=== PATIENT | female | born 1955 | race Caucasian/White ===

== ENCOUNTER 2024-11-25 15:40 | Inpatient (IN) ==
--- NOTE | 2024-11-25 16:06 | Emergency Department Note ---
History of Present Illness General Chief complaint: Neck Injury/Pain Stated complaint: LEFT SIDE PAIN, NECK PAIN, Time Seen by Provider: 11/25/24 16:02 History of Present Illness Maximum Pain Intensity: 9 This is a 69-year-old female that presents to the emergency department via private vehicle with complaints of "back pain". The patient notes that she was here this morning for same symptoms. Pain is in the left shoulder blade area and radiates to the left side of her neck. No trauma. No injury. She notes laboratory studies earlier today were overall reassuring. She denies any recent imaging. She is currently wearing a lidocaine patch. She has not taken other medications for the symptoms other than what was given here overnight. The patient denies any central chest pain or shortness of breath. No exertional symptoms. Current pain 07/02. She notes pain now is worse than what it was previously. She notes something similar years ago, but nothing recent other than what prompted presentation earlier today and now. Patient notes that her symptoms began this past Monday mainly in the left scapular region but then began to radiate to the right shoulder. Then overnight this past evening she noted the pain radiated from the left scapula superiorly to the left side of the neck and also to the right shoulder. Pain is worse with movements of the head/neck. She notes trouble taking a deep breath secondary to the pain that is worsened with a deep breath in the left scapula. Home Medications Medication Instructions Recorded Confirmed Type acetaminophen 650 mg 650 mg PO PRN 02/02/24 11/25/24 History tablet,extended release (Tylenol 8 Hour) cyclobenzaprine 10 mg tablet 10 mg PO BID PRN muscle spasm #20 11/25/24 11/25/24 Rx tabs etodolac 400 mg tablet 400 mg PO UD 11/25/24 11/25/24 History Allergies Allergy/AdvReac Type Severity Reaction Status Date / Time cat dander Allergy Unknown ALLERGY Verified 10/19/24 11:51 SYMPTOMS No Known Drug Allergies Allergy Unknown Verified 10/19/24 11:51 Past Med/Surg History Problem List (Updated 11/26/24 @ 11:12 by Александр Zurita MD) Carotid stenosis Abnormal computed tomography angiography of head (Acute) Abnormal computed tomography angiography (CTA) of neck (Acute) Left shoulder pain Cerebral vasculitis Back muscle spasm (Acute) Joint pain Right rotator cuff tendinitis Depression Pap smear of cervix with high grade squamous intraepithelial lesion (HGSIL) (Acute) ASCUS with positive high risk HPV (Acute) Dyslipidemia Painful defecation Rectal discomfort Medical History Biceps muscle tear Smoker History of COVID-19 ? per [facility] testing 01/06/21 pt + for antibodies--pt states she was sick in July 2020--had severe back pain, fever Degenerative arthritis of knee, bilateral Surgical History Hx of bilateral cataract extraction H/O thumb surgery History of colonoscopy S/P wisdom tooth extraction HX S/P ACL repair HX, RIGHT S/P tonsillectomy HX Family History Brother Family history of diabetes mellitus Brother Family history of diabetes mellitus Mother , age 72 pancreatic cancer. Pancreatic cancer Father , age 80 of a stroke Stroke Other No history of previous surgery Denies family history of Ovarian cancer Prostate cancer Myocardial infarction Breast cancer Colorectal cancer Social History Smoking Status: Current every day smoker Tobacco Type: Cigarettes Age Started Using Tobacco: 24; packs per day: 0.5; Cigarettes Per Day: 1/2 pack; Second Hand Exposure: No; Do You Dip or Chew Tobacco: No; Hx Alcohol Use: Yes Alcohol type: wine Alcohol Intake Frequency: Monthly or Less Hx Substance Use: No Preferred Language: Korean Communication Ability: Effective Visual Impairment: No Limitations Hearing Ability: Normal Vamper Required: No Beliefs That Will Affect Care: None marital status: Single Current Living Situation: Alone current occupational status: employed 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 How many Children do You have: 2 Other Information That Helps Us Care for You: No Feels Safe at Home: Yes Safety Concerns: Feels Safe At This Time Childhood Exposure to Second-Hand Smoke: No Diet: regular Diet Comment: regular caffeine: Yes during the past year weight has: remained stable Dental Care, Regularly: Yes Physical Activity Frequency: Daily Seatbelt Use: always Sunscreen Use: Yes Assistive Devices: None Review of Systems A total of 10 systems reviewed and were otherwise negative Physical Exam Vital Signs Vital Signs - 24 hr 11/25/24 15:55 11/25/24 18:28 11/25/24 19:20 Temperature 36.6 C Temperature Source Temporal Artery Scan Pulse Rate 99 H Pulse Rate [Finger] 83 86 Respiratory Rate 18 18 20 Respiratory Effort / Characteristics Non-Labored Respiratory Depth Normal Respiratory Pattern Blood Pressure 148/91 H Blood Pressure [Right Arm] 145/85 H 150/86 H Blood Pressure Mean 110 Blood Pressure Mean [Right Arm] 105 107 Pulse Oximetry 94 99 98 Oxygen Delivery Method Room Air Room Air Room Air Sepsis Recent Fever Within 48 Hours No Sepsis New/Unexplained Change in Mental Status No Sepsis Action Taken by Nursing No Action Required 11/25/24 20:33 11/25/24 22:30 Temperature Temperature Source Pulse Rate Pulse Rate [Finger] 86 85 Respiratory Rate 20 18 Respiratory Effort / Characteristics Non-Labored Respiratory Depth Normal Respiratory Pattern Regular Blood Pressure Blood Pressure [Right Arm] 147/99 H 122/61 Blood Pressure Mean Blood Pressure Mean [Right Arm] 115 81 Pulse Oximetry 97 97 Oxygen Delivery Method Room Air Room Air Sepsis Recent Fever Within 48 Hours Sepsis New/Unexplained Change in Mental Status Sepsis Action Taken by Nursing VITAL SIGNS - Vital signs and nursing notes were reviewed. Mildly hypertensive 148/91, mildly tachycardic at 99, otherwise stable and afebrile. GENERAL -69-year-old female appearing her stated age who is in no acute distress. Communicates well with provider and answers questions appropriately. SKIN - Without rashes. No meningeal or petechial rash. The skin overlying the back is unremarkable. Lidocaine patch in place. No herpetic lesions. HEAD - NC/AT. EYES - PERRL with EOMI bilaterally. Sclera anicteric. EARS - No deformities of external structures noted on gross examination bilaterally. NOSE - Midline and without cyanosis. No epistaxis or purulent drainage noted. MOUTH/OROPHARYNX - Without perioral cyanosis. NECK -patient holds the head and neck in a very still position noting any movement reproduces her discomfort. Tenderness noted to the left cervical paraspinous musculature. LUNGS -clear to auscultation CARDIAC -regular rate and rhythm ABDOMEN - Abdominal contour normal without pulsations or visible masses. BS normoactive all four quadrants. No tenderness, palpable masses, hepatosplenomegaly, or ascites noted. EXTREMITIES - No clubbing or peripheral cyanosis. There is tenderness surrounding the left scapular region with palpable muscle spasm. +5/5 strength noted in UE/LE bilaterally. There is no C, T or L-spine spinous processes tenderness. NEUROLOGIC - Cranial nerves II through XII grossly intact. Biceps reflexes within normal limits bilaterally. PSYCH -alert, oriented and pleasant on exam Course Administered Medications Acetaminophen (Acetaminophen 325 Mg Tab) 650 mg PO Q4H PRN PRN Reason: Pain Stop: 12/26/24 00:48 Last Admin: 11/26/24 01:15 Dose: 650 mg Documented By: RADHA Aspirin (Aspirin 81 Mg Ectab) 81 mg PO DAILY KYRA Stop: 12/26/24 08:59 Last Admin: 11/26/24 09:45 Dose: 81 mg Documented By: ABIEL Baclofen (Baclofen 10 Mg Tab) 10 mg PO TID KYRA Stop: 12/26/24 08:59 Last Admin: 11/26/24 09:44 Dose: 10 mg Documented By: ABIEL Lidocaine (Lidocaine 5% 1 Patch) 1 patch TD QAM KYRA Stop: 12/26/24 08:59 Last Admin: 11/26/24 09:45 Dose: 1 patch Documented By: ABIEL Discontinued Medications Acetaminophen (Acetaminophen 325 Mg Tab) 650 mg PO NOW STA Stop: 11/25/24 20:19 Last Admin: 11/25/24 20:30 Dose: 650 mg Documented By: YUE Aspirin (Aspirin 81 Mg Ectab) 81 mg PO NOW STA Stop: 11/25/24 20:32 Last Admin: 11/25/24 20:46 Dose: 81 mg Documented By: YUE Baclofen (Baclofen 10 Mg Tab) 10 mg PO NOW STA Stop: 11/25/24 20:19 Last Admin: 11/25/24 20:30 Dose: 10 mg Documented By: YUE Ioversol (Optiray 320 125ml) 119 ml IV ONCE ONE Stop: 11/25/24 18:14 Last Admin: 11/25/24 18:13 Dose: 119 ml Documented By: JOSÉ LUIS Ketorolac Tromethamine (Ketorolac Tromethamine 10 Mg Tablet) 10 mg PO NOW STA Stop: 11/26/24 03:35 Last Admin: 11/26/24 03:53 Dose: 10 mg Documented By: HE Morphine Sulfate (Morphine Sulfate 4 Mg/Ml 1 Ml Carp\\Vial) 4 mg IV NOW STA Stop: 11/25/24 16:28 Last Admin: 11/25/24 16:53 Dose: 4 mg Documented By: ELIAN Morphine Sulfate (Morphine Sulfate 2 Mg/Ml Carp) 2 mg IV NOW STA Stop: 11/25/24 17:35 Last Admin: 11/25/24 17:38 Dose: 2 mg Documented By: MANUEL Ondansetron HCl (Ondansetron Inj 2 Mg/Ml 2 Ml Vial) 4 mg IV NOW STA Stop: 11/25/24 16:28 Last Admin: 11/25/24 16:52 Dose: 4 mg Documented By: ELIAN Medical Decision Making Laboratory Data 11/25/24 16:49 11/25/24 16:49 Lab Results 11/25/24 11/25/24 11/25/24 Range/Units 16:49 16:56 17:00 WBC 7.85 (4.8-10.8) K/ul RBC 5.02 (4.20-5.40) M/uL Hgb 13.7 (12.0-16.0) g/dl POC Hgb 14.6 (12.0-16.0) g/dl Hct 43.2 (37.0-47.0) % POC Hct 43 (37-47) % MCV 86.1 (80.0-100.0) fL MCH 27.3 (25.0-34.0) pg MCHC 31.7 L (32.0-36.0) g/dL RDW Std Deviation 40.1 (36.4-46.3) fL RDW Coeff of Kike 13.0 (11.5-14.5) % Plt Count 209 (130-400) K/uL MPV 10.8 (9.4-12.4) fL Immature Gran % (Auto) 0.5 % Neut % (Auto) 77.5 % Lymph % (Auto) 11.5 % Steele % (Auto) 9.3 % Eos % (Auto) 0.9 % Baso % (Auto) 0.3 % Neut # (Auto) 6.09 (1.40-6.50) K/uL Lymph # (Auto) 0.90 L (1.20-3.40) K/uL Steele # (Auto) 0.73 H (0.11-0.59) K/uL Eos # (Auto) 0.07 (0.00-0.50) K/uL Baso # (Auto) 0.02 (0.00-0.20) K/uL Immature Gran # (Auto) 0.04 (0.01-0.20) K/uL ESR 47 H (0-30) mm/hr PT 10.3 (9.0-12.0) Seconds INR 0.9 (0.9-1.1) APTT 28 (21-31) Seconds PTT Ratio 1.0 POC Sodium 140 (135-144) mmol/L Sodium 138 (136-145) mmol/L POC Potassium 4.0 (3.3-5.0) mmol/L Potassium 3.9 (3.5-5.1) mmol/L POC Chloride 104 (101-112) mmol/L Chloride 104 (98-107) mmol/L Carbon Dioxide 27 (21-32) mmol/L POC Total CO2 25 (24-31) mmol/L Anion Gap 7 (3-11) POC Anion Gap 16.0 (16-25) mmol/L POC BUN 13 (7-18) mg/dl BUN 14 (6-23) mg/dl Creatinine 0.77 (0.6-1.2) mg/dl POC Creatinine 0.9 (0.6-1.3) mg/dl Est Cr Clr Drug Dosing 68.0 ml/min eGFR 82.93 BUN/Creatinine Ratio 18.2 (10-20) Glucose 117 H (70-99(Fasting)) mg/dl POC Glucose (other) 118 H (70-99) mg/dl Calcium 9.5 (8.6-10.3) mg/dl POC Ioniz Calcium Hector 1.21 (1.12-1.32) mmol/l Magnesium 2.3 (1.7-2.4) mg/dl Total Bilirubin 0.7 (0.2-1.0) mg/dl AST 15 (13-39) U/L ALT 14 (7-52) U/L Alkaline Phosphatase 56 (34-104) U/L Total Creatine Kinase 78 (26-192) U/L Troponin I High Sens 7.2 (0-14) pg/ml C-Reactive Protein 8.58 H (0-0.5) mg/dl Total Protein 7.1 (6.0-8.3) gm/dl Albumin 3.9 (3.4-5.0) gm/dl Globulin 3.2 (2.5-4.0) gm/dl Albumin/Globulin Ratio 1.2 (0.9-2) Lipase 9 L (11-82) U/L Urine Color Urine Appearance (Clear) Urine pH (4.5-7.5) Ur Specific Pixley (1.000-1.030) Urine Protein (Negative) Urine Glucose (UA) (Negative) Urine Ketones (Negative) Urine Blood (Negative) Urine Nitrite (Negative) Urine Bilirubin (Negative) Urine Urobilinogen (Negative) Ur Leukocyte Esterase (Negative) Lyme Disease Screen Negative (Negative) SARS-CoV-2 (PCR) NEGATIVE (Negative) Influenza Type A (PCR) Negative (Neg) Influenza Type B (PCR) Negative (Neg) RSV (RT-PCR) Negative (Neg) 11/25/24 Range/Units 19:14 WBC (4.8-10.8) K/ul RBC (4.20-5.40) M/uL Hgb (12.0-16.0) g/dl POC Hgb (12.0-16.0) g/dl Hct (37.0-47.0) % POC Hct (37-47) % MCV (80.0-100.0) fL MCH (25.0-34.0) pg MCHC (32.0-36.0) g/dL RDW Std Deviation (36.4-46.3) fL RDW Coeff of Kike (11.5-14.5) % Plt Count (130-400) K/uL MPV (9.4-12.4) fL Immature Gran % (Auto) % Neut % (Auto) % Lymph % (Auto) % Steele % (Auto) % Eos % (Auto) % Baso % (Auto) % Neut # (Auto) (1.40-6.50) K/uL Lymph # (Auto) (1.20-3.40) K/uL Steele # (Auto) (0.11-0.59) K/uL Eos # (Auto) (0.00-0.50) K/uL Baso # (Auto) (0.00-0.20) K/uL Immature Gran # (Auto) (0.01-0.20) K/uL ESR (0-30) mm/hr PT (9.0-12.0) Seconds INR (0.9-1.1) APTT (21-31) Seconds PTT Ratio POC Sodium (135-144) mmol/L Sodium (136-145) mmol/L POC Potassium (3.3-5.0) mmol/L Potassium (3.5-5.1) mmol/L POC Chloride (101-112) mmol/L Chloride (98-107) mmol/L Carbon Dioxide (21-32) mmol/L POC Total CO2 (24-31) mmol/L Anion Gap (3-11) POC Anion Gap (16-25) mmol/L POC BUN (7-18) mg/dl BUN (6-23) mg/dl Creatinine (0.6-1.2) mg/dl POC Creatinine (0.6-1.3) mg/dl Est Cr Clr Drug Dosing ml/min eGFR BUN/Creatinine Ratio (10-20) Glucose (70-99(Fasting)) mg/dl POC Glucose (other) (70-99) mg/dl Calcium (8.6-10.3) mg/dl POC Ioniz Calcium Hector (1.12-1.32) mmol/l Magnesium (1.7-2.4) mg/dl Total Bilirubin (0.2-1.0) mg/dl AST (13-39) U/L ALT (7-52) U/L Alkaline Phosphatase (34-104) U/L Total Creatine Kinase (26-192) U/L Troponin I High Sens (0-14) pg/ml C-Reactive Protein (0-0.5) mg/dl Total Protein (6.0-8.3) gm/dl Albumin (3.4-5.0) gm/dl Globulin (2.5-4.0) gm/dl Albumin/Globulin Ratio (0.9-2) Lipase (11-82) U/L Urine Color Yellow Urine Appearance Clear (Clear) Urine pH 6.5 (4.5-7.5) Ur Specific Pixley 1.043 H (1.000-1.030) Urine Protein Negative (Negative) Urine Glucose (UA) Negative (Negative) Urine Ketones Negative (Negative) Urine Blood Negative (Negative) Urine Nitrite Negative (Negative) Urine Bilirubin Negative (Negative) Urine Urobilinogen Negative (Negative) Ur Leukocyte Esterase Negative (Negative) Lyme Disease Screen (Negative) SARS-CoV-2 (PCR) (Negative) Influenza Type A (PCR) (Neg) Influenza Type B (PCR) (Neg) RSV (RT-PCR) (Neg) Imaging Data Radiologist's Impression: Head CTA 11/25/24 16:[address] without contrast CT angiogram of the neck CT angiogram of the brain with contrast Provided History: Neuro deficit Comparison: None Technique: HEAD CT: Using multidetector thin collimation helical acquisition technique, axial, coronal and sagittal CT images from the skull base to the vertex were obtained without intravenous contrast. HEAD and NECK CTA: During rapid bolus intravenous injection of nonionic contrast material, axial images were obtained using thin collimation multidetector helical technique from the base of the neck through the Vertex of vertex of the head. This CT angiogram data was reconstructed at thin intervals with mild overlap. 3D reconstructions were obtained. The axial source images, multiplanar reformations, 3D reconstructions in both maximum intensity projection display and volume rendered models were reviewed. Dose reduction techniques were achieved by using automatic exposure control and/or adjustment of mA and/or kV according to patient size and/or use of iterative reconstruction technique. Findings: Head CT: There is no intracranial hemorrhage, mass effect, or midline shift. Michael/white matter differentiation in both cerebral hemispheres is preserved. Ventricles are proportionate to the cerebral sulci. Head CTA demonstrates loss of flow at the left ICA terminus, as well as the proximal M1 portion of the MCA on the left. There are numerous tiny collateral vessels occupying the expected region of the proximal left MCA, which may be due to a chronic and progressive occlusion. The right MCA is normal. The right intracranial ICA is normal. Notably there is asymmetric loss of enhancement of the left cavernous sinus, suspicious for cavernous sinus thrombosis, and otherwise normal enhancement of the right cavernous sinus. The anterior cerebral arteries and posterior cerebral arteries otherwise appear patent. Grossly patent major dural venous sinuses. Neck CTA demonstrates several areas of beading of the wall of the internal carotid arteries, which are also significantly tortuous. No large vessel occlusion. There also appear to be several scattered arterial collaterals extending along the length of both internal carotid arteries. The vertebral arteries and basilar artery are patent. No mass is noted within the visualized portions of the cervical soft tissues or lung apices. 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 There is also asymmetric loss of enhancement of the left cavernous sinus suspicious for cavernous sinus thrombosis. Significant tortuosity and beaded appearance of both internal carotid arteries in the neck, which is consistent with a [employer]DER vasculitis. No large vessel occlusion. Noncontrast head CT is normal, without hemorrhage or significant vascular territory infarct. Consider follow-up MRI. The study was analyzed using artificial intelligence software for large vessel occlusion detection. Findings discussed with Marcelo Calderon by Dr. Mitchell at 6:55 PM, 11/25/2024 Electronically signed by James Mitchell 11-25-2024 7:01 PM Neck CTA 11/25/24 16:[address] without contrast CT angiogram of the neck CT angiogram of the brain with contrast Provided History: Neuro deficit Comparison: None Technique: HEAD CT: Using multidetector thin collimation helical acquisition technique, axial, coronal and sagittal CT images from the skull base to the vertex were obtained without intravenous contrast. HEAD and NECK CTA: During rapid bolus intravenous injection of nonionic contrast material, axial images were obtained using thin collimation multidetector helical technique from the base of the neck through the Vertex of vertex of the head. This CT angiogram data was reconstructed at thin intervals with mild overlap. 3D reconstructions were obtained. The axial source images, multiplanar reformations, 3D reconstructions in both maximum intensity projection display and volume rendered models were reviewed. Dose reduction techniques were achieved by using automatic exposure control and/or adjustment of mA and/or kV according to patient size and/or use of iterative reconstruction technique. Findings: Head CT: There is no intracranial hemorrhage, mass effect, or midline shift. Michael/white matter differentiation in both cerebral hemispheres is preserved. Ventricles are proportionate to the cerebral sulci. Head CTA demonstrates loss of flow at the left ICA terminus, as well as the proximal M1 portion of the MCA on the left. There are numerous tiny collateral vessels occupying the expected region of the proximal left MCA, which may be due to a chronic and progressive occlusion. The right MCA is normal. The right intracranial ICA is normal. Notably there is asymmetric loss of enhancement of the left cavernous sinus, suspicious for cavernous sinus thrombosis, and otherwise normal enhancement of the right cavernous sinus. The anterior cerebral arteries and posterior cerebral arteries otherwise appear patent. Grossly patent major dural venous sinuses. Neck CTA demonstrates several areas of beading of the wall of the internal carotid arteries, which are also significantly tortuous. No large vessel occlusion. There also appear to be several scattered arterial collaterals extending along the length of both internal carotid arteries. The vertebral arteries and basilar artery are patent. No mass is noted within the visualized portions of the cervical soft tissues or lung apices. 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 There is also asymmetric loss of enhancement of the left cavernous sinus suspicious for cavernous sinus thrombosis. Significant tortuosity and beaded appearance of both internal carotid arteries in the neck, which is consistent with a [employer] vasculitis. No large vessel occlusion. Noncontrast head CT is normal, without hemorrhage or significant vascular territory infarct. Consider follow-up MRI. The study was analyzed using artificial intelligence software for large vessel occlusion detection. Findings discussed with Marcelo Calderon by Dr. Mitchell at 6:55 PM, 11/25/2024 Electronically signed by James Mitchell 11-25-2024 7:01 PM Chest CTA 11/25/24 16:21 CT angiogram with and without IV contrast History: Chest pain COMPARISON: None TECHNIQUE: CT angiography of the chest was performed without IV contrast followed by IV contrast, including 3D post processing CTA image reconstruction. Dose reduction techniques were achieved by using automatic exposure control and/or adjustment of mA and/or kV according to patient size and/or use of iterative reconstruction technique. FINDINGS: Diagnostic quality: Adequate There is no evidence for pulmonary embolism. No aortic dissection. No aortic aneurysm. No significant coronary calcification. The heart is not enlarged. There is no pericardial effusion. There are no abnormally enlarged hilar or mediastinal lymph nodes. The central tracheobronchial tree is clear. Mild streaky bibasilar peripheral atelectasis, otherwise of the lungs are clear. There is no pleural effusion. Limited visualized upper abdomen. No destructive osseous changes are seen. IMPRESSION: No acute thoracic aortic pathology. Mild bibasilar atelectasis. Electronically signed by James Mitchell 11-25-2024 7:01 PM MDM Narrative Patient was seen and evaluated as above in room D05. Review was performed of triage nursing notes and vital signs. I did review pertinent previous visits and patient history. After obtaining a thorough history and physical examination the above work up was performed. Patient was seen here overnight/into the early hours of this morning for same symptoms. I did review the laboratory studies that were performed at that time. There was a chest x-ray also performed earlier today. Laboratory studies earlier today revealed no leukocytosis or concerning anemia. No emergent metabolic disturbance. Hyperglycemia 127 noted on laboratory studies earlier today. She notes that the Toradol, Flexeril and lidocaine patch provided did not alleviate her pain. Options of care were discussed with the patient. IV access was established. Labs are drawn. IV morphine ordered for pain, Zofran for any nausea. We will proceed with CT angios of the head, neck and chest to further assess. I did receive a phone call at 6:52 PM from radiology service, spoke with Dr. Mitchell. Findings are as above and he does note that the patient has findings of a left M1 occlusion likely chronic, asymmetric loss of enhancement of the left cavernous sinus concerning for cavernous sinus thrombosis, and also notes potentially [employer] vasculitis. I reviewed these abnormal findings with the patient. She continues with a normal neurologic examination. NIHSS 0. We did consult [facility] service. 7:20 PM: I spoke with Dr. Finney of [facility] neurology service. Patient was also evaluated by Dr. Finney via tele stroke neuro cart. We reviewed in detail the patient's symptoms, physical examination findings and test results. She recommended MRI of the head with and without contrast, MRA head, MRV head, ESR, CRP, RIC with reflex, start aspirin 81 mg daily, obtain lipid panel, echo, A1c. Consider baclofen and lidocaine patch for neck pain. Consult neurology in a.m. We reviewed how unfortunately we do not have MRI capability at this time and likely will not be until least Monday until we have that capability. We discussed transfer versus admission here. Initially it was noted by Dr. Finney that if the patient maintained stable neurologic status and without new numbness, speech trouble or vision change then okay to hold off on transfer. I reviewed this with the patient as well as daughter. Desires is to be transferred to [facility] at this time. I did order 81 mg aspirin for the patient. I did add on ESR and CRP. I also added baclofen for pain. I also ordered acetaminophen. Patient does note some improvement with the baclofen. 8:56 PM: I spoke with [facility] again regarding transfer. They obtained additional information and will speak with the specialist. 9:04 PM: I spoke with Mary Hernandez neurologist. We discussed the patient's case. I did review the CT findings noting they were concerning for M1 occlusion-likely chronic, possible cavernous sinus thrombosis, and potentially a [employer] vasculitis. In speaking with her, ultimately transfer was declined. However she did note that if the patient were to develop any signs of intracranial pressure increase, vision change, headaches or any other worsening symptoms/stroke symptoms then she is to be transferred. I updated the patient and daughter at bedside upon this discussion. I reviewed several other options with the patient and daughter. I offered to call other centers for transfer. Ultimately through shared medical decision making with the patient and Daughter, we elected to proceed with admission here as initially recommended by the telestroke neurologist. Patient is to notify us of any change in symptoms and she will have frequent reevaluations here in the inpatient setting. I discussed the case with the hospitalist service. Please refer to further documentation regarding her stay. I reevaluated the patient several times throughout her stay here in the ED. At no point did she exhibit any neurovascular compromise. NIHSS continued to be 0. Patient continues to deny any headache. No vision trouble. No speech trouble. No weakness. No vomiting. GCS remains 15. Patient continues to be alert and oriented. She reassuringly was starting to feel better with the baclofen. She is aware of all findings today and plan of care. She is agreeable to plan. EKG per my interpretation reveals normal sinus rhythm at a rate of 90 bpm. QTc 459. QRS 84. No ST elevation on this rhythm tracing. Case was discussed with the attending physician. GCS: 15 In the evaluation and treatment of this patient the following differential diagnoses were entertained: Strain, sprain, dissection, CVA, TIA, among others. Attending Attestation: I Rene Dolan MD I have reviewed the advanced practitioner's documentation and agree with the plan of care. Imaging completed with reports showing likely chronic vascular changes. PA did discussed with [facility] stroke service and recs for additional imaging, testing, treatment received; [facility] did not feel the patient warranted transfer at this time. Symptoms reported (pain) not corresponding well to the imaging findings. Patient to be admitted for pain control and further neuro eval in morning. I accept the responsibility for the associated risk of managing the patient. I performed a substantive portion of the visit including involvement in all aspects of medical decision making. Impression & Plan Back muscle spasm, Abnormal computed tomography angiography (CTA) of neck, Abnormal computed tomography angiography of head Discharge Plan Visit Data Chief Complaint: Neck Injury/Pain Stated Complaint: LEFT SIDE PAIN, NECK PAIN, ED Provider: Rene Dolan ED Midlevel Provider: Marcelo Calderon Discharge Problem: Back muscle spasm, Abnormal computed tomography angiography (CTA) of neck, Abnormal computed tomography angiography of head Patient Disposition: Admitted As Inpatient Condition: Good Discharge Instructions Interventions: ED Discharge Assessment Last Done: 11/25/24 23:39
[2024-11-25] MEDS: ONDANSETRON INJ 2 MG/ML 2 ML VIAL IV STA (16:52)
[2024-11-25] MEDS: MoRPHine SULFATE 4 MG/ML 1 ML CARP\\VIAL IV STA (16:53)
[2024-11-25 17:08] LABS: iSTAT Creatinine 0.9 mg/dl (0.6-1.3); iSTAT Hemoglobin 14.6 g/dl (12.0-16.0); iSTAT Ionized Calcium 1.21 mmol/l (1.12-1.32)
[2024-11-25 17:20] LABS: Basophils # (auto) 0.02 K/uL (0.00-0.20); Basophils % (auto) 0.3 %; Eosinophils # (auto) 0.07 K/uL (0.00-0.50); Eosinophils % (auto) 0.9 %; Hematocrit (blood only) 43.2 % (37.0-47.0); Hemoglobin 13.7 g/dl (12.0-16.0); Immature Granulocytes # (auto) 0.04 K/uL (0.01-0.20); Immature Granulocytes % (auto) 0.5 %; Lymphocytes % (auto) 11.5 %; Mean Corpuscular Hemoglobin 27.3 pg (25.0-34.0); Mean Corpuscular Hgb Conc 31.7 g/dL (32.0-36.0); Mean Corpuscular Volume 86.1 fL (80.0-100.0); Mean Platelet Volume 10.8 fL (9.4-12.4); Monocytes # (auto) 0.73 K/uL (0.11-0.59); Monocytes % (auto) 9.3 %; Neutrophils # (auto) 6.09 K/uL (1.40-6.50); Neutrophils % (auto) 77.5 %; Platelet Count 209 K/uL (130-400); RDW Standard Deviation 40.1 fL (36.4-46.3); Red Blood Count 5.02 M/uL (4.20-5.40); White Blood Count 7.85 K/ul (4.8-10.8)
[2024-11-25 17:34] LABS: INR 0.9 (0.9-1.1); Partial Thromboplastin Time 28 Seconds (21-31); Prothrombin Time 10.3 Seconds (9.0-12.0)
[2024-11-25] MEDS: MoRPHine SULFATE 2 MG/ML CARP IV STA (17:38)
[2024-11-25 17:43] LABS: Albumin Level 3.9 gm/dl (3.4-5.0); Bilirubin,Total 0.7 mg/dl (0.2-1.0); Calcium 9.5 mg/dl (8.6-10.3); Magnesium 2.3 mg/dl (1.7-2.4); Potassium 3.9 mmol/L (3.5-5.1)
[2024-11-25 17:49] LABS: Albumin Globulin Ratio 1.2 (0.9-2); BUN Creatinine Ratio 18.2 (10-20); Globulin 3.2 gm/dl (2.5-4.0); Total Protein 7.1 gm/dl (6.0-8.3)
[2024-11-25 17:51] LABS: Troponin I High Sensitivity 7.2 pg/ml (0-14)
[2024-11-25 17:55] LABS: Influenza A virus by PCR Negative (Neg); Influenza B virus by PCR Negative (Neg); RSV by PCR Negative (Neg); SARS CoV2 RNA(COVID-19) Ceph NEGATIVE (Negative)
[2024-11-25] MEDS: OPTIRAY 320 125ml IV ONE (18:13)
--- NOTE | 2024-11-25 19:01 | CT Scan Report ---
Head CT without contrast CT angiogram of the neck CT angiogram of the brain with contrast Provided History: Neuro deficit Comparison: None Technique: HEAD CT: Using multidetector thin collimation helical acquisition technique, axial, coronal and sagittal CT images from the skull base to the vertex were obtained without intravenous contrast. HEAD and NECK CTA: During rapid bolus intravenous injection of nonionic contrast material, axial images were obtained using thin collimation multidetector helical technique from the base of the neck through the Vertex of vertex of the head. This CT angiogram data was reconstructed at thin intervals with mild overlap. 3D reconstructions were obtained. The axial source images, multiplanar reformations, 3D reconstructions in both maximum intensity projection display and volume rendered models were reviewed. Dose reduction techniques were achieved by using automatic exposure control and/or adjustment of mA and/or kV according to patient size and/or use of iterative reconstruction technique. Findings: Head CT: There is no intracranial hemorrhage, mass effect, or midline shift. Michael/white matter differentiation in both cerebral hemispheres is preserved. Ventricles are proportionate to the cerebral sulci. Head CTA demonstrates loss of flow at the left ICA terminus, as well as the proximal M1 portion of the MCA on the left. There are numerous tiny collateral vessels occupying the expected region of the proximal left MCA, which may be due to a chronic and progressive occlusion. The right MCA is normal. The right intracranial ICA is normal. Notably there is asymmetric loss of enhancement of the left cavernous sinus, suspicious for cavernous sinus thrombosis, and otherwise normal enhancement of the right cavernous sinus. The anterior cerebral arteries and posterior cerebral arteries otherwise appear patent. Grossly patent major dural venous sinuses. Neck CTA demonstrates several areas of beading of the wall of the internal carotid arteries, which are also significantly tortuous. No large vessel occlusion. There also appear to be several scattered arterial collaterals extending along the length of both internal carotid arteries. The vertebral arteries and basilar artery are patent. No mass is noted within the visualized portions of the cervical soft tissues or lung apices. 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 There is also asymmetric loss of enhancement of the left cavernous sinus suspicious for cavernous sinus thrombosis. 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 No large vessel occlusion. Noncontrast head CT is normal, without hemorrhage or significant vascular territory infarct. Consider follow-up MRI. The study was analyzed using artificial intelligence software for large vessel occlusion detection. Findings discussed with Marcelo Calderon by Dr. Mitchell at 6:55 PM, 11/25/2024 Electronically signed by James Mitchell 11-25-2024 7:01 PM
--- NOTE | 2024-11-25 19:01 | CT Scan Report ---
CT angiogram with and without IV contrast History: Chest pain COMPARISON: None TECHNIQUE: CT angiography of the chest was performed without IV contrast followed by IV contrast, including 3D post processing CTA image reconstruction. Dose reduction techniques were achieved by using automatic exposure control and/or adjustment of mA and/or kV according to patient size and/or use of iterative reconstruction technique. FINDINGS: Diagnostic quality: Adequate There is no evidence for pulmonary embolism. No aortic dissection. No aortic aneurysm. No significant coronary calcification. The heart is not enlarged. There is no pericardial effusion. There are no abnormally enlarged hilar or mediastinal lymph nodes. The central tracheobronchial tree is clear. Mild streaky bibasilar peripheral atelectasis, otherwise of the lungs are clear. There is no pleural effusion. Limited visualized upper abdomen. No destructive osseous changes are seen. IMPRESSION: No acute thoracic aortic pathology. Mild bibasilar atelectasis. Electronically signed by James Mitchell 11-25-2024 7:01 PM
[2024-11-25 19:30] LABS: Appearance Urine Clear (Clear); Bilirubin Urine Negative (Negative); Blood Urine Negative (Negative); Color Urine Yellow; Glucose Urine UA Negative (Negative); Ketones Urine Negative (Negative); Leukocyte Esterase Urine Negative (Negative); Nitrite Urine Negative (Negative); Protein Urine Negative (Negative); Specific Gravity Urine 1.043 (1.000-1.030); Urobilinogen Urine Negative (Negative); pH Urine 6.5 (4.5-7.5)
[2024-11-25] MEDS: BACLOFEN 10 MG TAB PO STA (20:30)
[2024-11-25] MEDS: ACETAMINOPHEN 325 MG TAB PO STA (20:30)
[2024-11-25] MEDS: ASPIRIN 81 MG ECTAB PO STA (20:46)
--- NOTE | 2024-11-25 22:21 | History & Physical Report ---
Date of Service November 25, 2024 Assessment & Plan (1) Cerebral vasculitis: (2) Left shoulder pain: Plan 69-year-old female PMHx dyslipidemia, depression, and the ED for left-sided back and scapular pain, radiating to neck. Patient was evaluated in the ED the morning of arrival and was discharged home with diagnosis of muscle spasm. Came back to the ED because she was having worsening pain. 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 ED workup overall unremarkable, with ESR 47 and abnormalities within CTA of head/neck- L M1 occlusion with collaterals, asymmetric loss of enhancement L cavernous sinus, tortuosity and beaded ICAs of neck. #? 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 Overall laboratory findings grossly unremarkable at time of admission, but CTA head/neck with concerning findings of L M1 occlusion, possibly chronic given presence of collateral circulation, asymmetric loss of enhancement of the L cavernous sinus and beaded appearance of ICAs and the neck. Initially, given the inability to complete MRI at current facility, patient was going to be considered for transfer. Transfer was declined from outside hospital and after discussion between ED JORDANA, patient, and family, all were agreeable to admission to [facility] for remaining workup. Imaging still recommended just unable to be ordered at time of admission given technical difficulties. - Telestroke consulted- ESR, CRP, RIC with reflex, lipids, echo, A1c, start aspirin 81 Mg daily, baclofen and lidocaine patch for pain, and neurology consult. Recommending imaging as well- MRI head with/without contrast, MRI head, MRV head - Neurochecks every 4 hours - CTA head/neck- L M1 occlusion, possibly chronic given presence of collateral circulation, asymmetric loss of enhancement of the L cavernous sinus and beaded appearance of ICAs and the neck - Echo with bubble, A1c, lipids pending - ESR 47; CRP and RIC with reflex pending - Troponin 7.3 (0530), 7.2 (1649); EKG NSR during both ED visits - ASA 81 mg daily; baclofen and lidocaine patch as needed for pain - Neurology consulted- Appreciate input + recs Dispo: Admit, med/tele VTE prophylaxis: SCDs This document was dictated utilizing Hoverink. Please excuse any grammatical errors that may be secondary to use of this software. Admission and Anticipated Discharge Date Admission Date: 11/25/2024 History of Present Illness Chief Complaint: Neck pain Primary Care Provider: Miguel Evans, III, WIRE WHEELER 69-year-old female PMHx dyslipidemia, depression, and the ED for left-sided back and scapular pain, radiating to neck. Patient was evaluated in the ED the morning of arrival and was discharged home with diagnosis of muscle spasm. Came back to the ED because she was having worsening pain. 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 States that she has chronic/tingling in her right arm from prior bicep trauma, but has not had new numbness or tingling. No weakness to any of the extremities. Patient denies having this happen before. No trauma or injury that patient can recall. Does have knee pain/abnormalities per patient. She believes that these occurred after the COVID-vaccine was received and has been an ongoing issue for the past 3 years. Otherwise denies additional joint problems or history of rheumatologic diagnoses in herself or family. Denying chest pain, shortness of breath, ulcers in mouth, frothy urine, or additional aches/pains. Normally utilizes etodolac and as needed Tylenol for pain, but has not been using the NSAID for the past week. ED workup reveals grossly WNL CBC, ESR 47, grossly WNL CMP with exception of glucose 117, and negative UA. CXR with LLL atelectatic bands, R lower zone cardiophrenic nodule atelectasis, no acute findings. Head/neck CTA without M1 occlusion (likely chronic 2/2 collaterals), asymmetric loss of enhancement of L cavernous sinus (suspicious for cavernous sinus thrombosis), significant tortuosity and beaded appearance of internal carotid arteries and neck (consistent with STRUCTURAL STEEL ERECTOR vasculitis). Head CT normal, consider follow-up MRI. Please see Dr. Roberts's attestation for adjustments/additions to treatment plan. Allergies Allergy/AdvReac Type Severity Reaction Status Date / Time cat dander Allergy Unknown ALLERGY Verified 10/19/24 11:51 SYMPTOMS No Known Drug Allergies Allergy Unknown Verified 10/19/24 11:51 Home Medications Medication Instructions Recorded Confirmed Type acetaminophen 650 mg 650 mg PO PRN 02/02/24 11/25/24 History tablet,extended release (Tylenol 8 Hour) cyclobenzaprine 10 mg tablet 10 mg PO BID PRN muscle spasm #20 11/25/24 11/25/24 Rx tabs etodolac 400 mg tablet 400 mg PO UD 11/25/24 11/25/24 History Past Med/Surg History Problem List Abnormal computed tomography angiography of head (Acute) Abnormal computed tomography angiography (CTA) of neck (Acute) Left shoulder pain Cerebral vasculitis Back muscle spasm (Acute) Joint pain Right rotator cuff tendinitis Depression Pap smear of cervix with high grade squamous intraepithelial lesion (HGSIL) (Acute) ASCUS with positive high risk HPV (Acute) Dyslipidemia Painful defecation Rectal discomfort Medical History Biceps muscle tear Smoker History of COVID-19 ? per IGg testing 01/06/21 pt + for antibodies--pt states she was sick in July 2020--had severe back pain, fever Degenerative arthritis of knee, bilateral Surgical History Hx of bilateral cataract extraction H/O thumb surgery History of colonoscopy S/P wisdom tooth extraction HX S/P ACL repair HX, RIGHT S/P tonsillectomy HX Family History Brother Family history of diabetes mellitus Brother Family history of diabetes mellitus Mother Pancreatic cancer Other No history of previous surgery Denies family history of Ovarian cancer Prostate cancer Myocardial infarction Breast cancer Colorectal cancer Social History Smoking Status: Current every day smoker Tobacco Type: Cigarettes Age Started Using Tobacco: 24; packs per day: 0.5; Cigarettes Per Day: 10; Second Hand Exposure: No; Do You Dip or Chew Tobacco: No; Hx Alcohol Use: No Hx Substance Use: No Preferred Language: Albanian Communication Ability: Effective Visual Impairment: No Limitations Hearing Ability: Normal 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: No Beliefs That Will Affect Care: None marital status: Single Current Living Situation: Alone current occupational status: employed 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 How many Children do You have: 2 Feels Safe at Home: Yes Childhood Exposure to Second-Hand Smoke: No Diet: regular Diet Comment: regular caffeine: Yes during the past year weight has: remained stable Dental Care, Regularly: Yes Physical Activity Frequency: Daily Seatbelt Use: always Sunscreen Use: Yes Assistive Devices: None Review of Systems Review of Systems: All systems reviewed & are unremarkable except as noted in Subjective Physical Exam Physical Exam: General: No acute distress Skin: Warm and dry, without rashes or lesions Head: Normocephalic, atraumatic Eyes: PERRL, conjunctivae clear, sclera non-icteric ENT: External ear and ear canal without swelling; nose atraumatic; good dentition, tongue normal appearance, pharynx normal Neck: Supple, no LAD Cardio: RRR, no M/G/R, S1 and S2 normal Resp: No respiratory distress, Lungs CTA in all lobes bilaterally, no wheezes, rales, or rhonchi MSK: No deformities, normal PROM LUE, tenderness to palpation along scapula and tenderness along anterior aspect of shoulder, no tenderness to palpation of j oint space; pulses palpable and equal Neuro: Awake, alert; CN grossly intact Psych: Appropriate mood and affect; good judgement and insight. Daughter present in room at time of visit. Results & Data Results & Data Vital Signs (Past 12 Hours) Vital Signs Temp Pulse Pulse Resp BP BP Pulse Ox 11/25/24 20:33 86 20 147/99 H 97 11/25/24 19:20 86 20 150/86 H 98 11/25/24 18:28 83 18 145/85 H 99 11/25/24 15:55 36.6 C 99 H 18 148/91 H 94 O2 Del Method 11/25/24 20:33 Room Air 11/25/24 19:20 Room Air 11/25/24 18:28 Room Air 11/25/24 15:55 Room Air Laboratory Results 11/25/24 11/25/24 11/25/24 19:14 17:00 16:56 WBC RBC Hgb POC Hgb 14.6 Hct POC Hct 43 MCV MCH MCHC RDW Std Deviation RDW Coeff of Kike Plt Count MPV Immature Gran % (Auto) Neut % (Auto) Lymph % (Auto) [place] % (Auto) Eos % (Auto) Baso % (Auto) Neut # (Auto) Lymph # (Auto) [place] # (Auto) Eos # (Auto) Baso # (Auto) Immature Gran # (Auto) ESR PT INR APTT PTT Ratio POC Sodium 140 Sodium POC Potassium 4.0 Potassium POC Chloride 104 Chloride Carbon Dioxide POC Total CO2 25 Anion Gap POC Anion Gap 16.0 POC BUN 13 BUN Creatinine POC Creatinine 0.9 Est Cr Clr Drug Dosing eGFR BUN/Creatinine Ratio Glucose POC Glucose (other) 118 H Calcium POC Ioniz Calcium Hector 1.21 Magnesium Total Bilirubin AST ALT Alkaline Phosphatase Total Creatine Kinase Troponin I High Sens Total Protein Albumin Globulin Albumin/Globulin Ratio Lipase Urine Color Yellow Urine Appearance Clear Urine pH 6.5 Ur Specific [place] 1.043 H Urine Protein Negative Urine Glucose (UA) Negative Urine Ketones Negative Urine Blood Negative Urine Nitrite Negative Urine Bilirubin Negative Urine Urobilinogen Negative Ur Leukocyte Esterase Negative SARS-CoV-2 (PCR) NEGATIVE Influenza Type A (PCR) Negative Influenza Type B (PCR) Negative RSV (RT-PCR) Negative 11/25/24 16:49 WBC 7.85 RBC 5.02 Hgb 13.7 POC Hgb Hct 43.2 POC Hct MCV 86.1 MCH 27.3 MCHC 31.7 L RDW Std Deviation 40.1 RDW Coeff of Kike 13.0 Plt Count 209 MPV 10.8 Immature Gran % (Auto) 0.5 Neut % (Auto) 77.5 Lymph % (Auto) 11.5 [place] % (Auto) 9.3 Eos % (Auto) 0.9 Baso % (Auto) 0.3 Neut # (Auto) 6.09 Lymph # (Auto) 0.90 L [place] # (Auto) 0.73 H Eos # (Auto) 0.07 Baso # (Auto) 0.02 Immature Gran # (Auto) 0.04 ESR 47 H PT 10.3 INR 0.9 APTT 28 PTT Ratio 1.0 POC Sodium Sodium 138 POC Potassium Potassium 3.9 POC Chloride Chloride 104 Carbon Dioxide 27 POC Total CO2 Anion Gap 7 POC Anion Gap POC BUN BUN 14 Creatinine 0.77 POC Creatinine Est Cr Clr Drug Dosing 68.0 eGFR 82.93 BUN/Creatinine Ratio 18.2 Glucose 117 H POC Glucose (other) Calcium 9.5 POC Ioniz Calcium Hector Magnesium 2.3 Total Bilirubin 0.7 AST 15 ALT 14 Alkaline Phosphatase 56 Total Creatine Kinase 78 Troponin I High Sens 7.2 Total Protein 7.1 Albumin 3.9 Globulin 3.2 Albumin/Globulin Ratio 1.2 Lipase 9 L Urine Color Urine Appearance Urine pH Ur Specific [place] Urine Protein Urine Glucose (UA) Urine Ketones Urine Blood Urine Nitrite Urine Bilirubin Urine Urobilinogen Ur Leukocyte Esterase SARS-CoV-2 (PCR) Influenza Type A (PCR) Influenza Type B (PCR) RSV (RT-PCR) Diagnostic Findings Head CTA 11/25/24 16:[address] without contrast CT angiogram of the neck CT angiogram of the brain with contrast Provided History: Neuro deficit Comparison: None Technique: HEAD CT: Using multidetector thin collimation helical acquisition technique, axial, coronal and sagittal CT images from the skull base to the vertex were obtained without intravenous contrast. HEAD and NECK CTA: During rapid bolus intravenous injection of nonionic contrast material, axial images were obtained using thin collimation multidetector helical technique from the base of the neck through the Vertex of vertex of the head. This CT angiogram data was reconstructed at thin intervals with mild overlap. 3D reconstructions were obtained. The axial source images, multiplanar reformations, 3D reconstructions in both maximum intensity projection display and volume rendered models were reviewed. Dose reduction techniques were achieved by using automatic exposure control and/or adjustment of mA and/or kV according to patient size and/or use of iterative reconstruction technique. Findings: Head CT: There is no intracranial hemorrhage, mass effect, or midline shift. Michael/white matter differentiation in both cerebral hemispheres is preserved. Ventricles are proportionate to the cerebral sulci. Head CTA demonstrates loss of flow at the left ICA terminus, as well as the proximal M1 portion of the MCA on the left. There are numerous tiny collateral vessels occupying the expected region of the proximal left MCA, which may be due to a chronic and progressive occlusion. The right MCA is normal. The right intracranial ICA is normal. Notably there is asymmetric loss of enhancement of the left cavernous sinus, suspicious for cavernous sinus thrombosis, and otherwise normal enhancement of the right cavernous sinus. The anterior cerebral arteries and posterior cerebral arteries otherwise appear patent. Grossly patent major dural venous sinuses. Neck CTA demonstrates several areas of beading of the wall of the internal carotid arteries, which are also significantly tortuous. No large vessel occlusion. There also appear to be several scattered arterial collaterals extending along the length of both internal carotid arteries. The vertebral arteries and basilar artery are patent. No mass is noted within the visualized portions of the cervical soft tissues or lung apices. 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 There is also asymmetric loss of enhancement of the left cavernous sinus suspicious for cavernous sinus thrombosis. Significant tortuosity and beaded appearance of both internal carotid arteries in the neck, which is consistent with a STRUCTURAL STEEL ERECTOR vasculitis. No large vessel occlusion. Noncontrast head CT is normal, without hemorrhage or significant vascular territory infarct. Consider follow-up MRI. The study was analyzed using artificial intelligence software for large vessel occlusion detection. Findings discussed with Marcelo Calderon by Dr. Mitchell at 6:55 PM, 11/25/2024 Electronically signed by James Mitchell 11-25-2024 7:01 PM Neck CTA 11/25/24 16:[address] without contrast CT angiogram of the neck CT angiogram of the brain with contrast Provided History: Neuro deficit Comparison: None Technique: HEAD CT: Using multidetector thin collimation helical acquisition technique, axial, coronal and sagittal CT images from the skull base to the vertex were obtained without intravenous contrast. HEAD and NECK CTA: During rapid bolus intravenous injection of nonionic contrast material, axial images were obtained using thin collimation multidetector helical technique from the base of the neck through the Vertex of vertex of the head. This CT angiogram data was reconstructed at thin intervals with mild overlap. 3D reconstructions were obtained. The axial source images, multiplanar reformations, 3D reconstructions in both maximum intensity projection display and volume rendered models were reviewed. Dose reduction techniques were achieved by using automatic exposure control and/or adjustment of mA and/or kV according to patient size and/or use of iterative reconstruction technique. Findings: Head CT: There is no intracranial hemorrhage, mass effect, or midline shift. Michael/white matter differentiation in both cerebral hemispheres is preserved. Ventricles are proportionate to the cerebral sulci. Head CTA demonstrates loss of flow at the left ICA terminus, as well as the proximal M1 portion of the MCA on the left. There are numerous tiny collateral vessels occupying the expected region of the proximal left MCA, which may be due to a chronic and progressive occlusion. The right MCA is normal. The right intracranial ICA is normal. Notably there is asymmetric loss of enhancement of the left cavernous sinus, suspicious for cavernous sinus thrombosis, and otherwise normal enhancement of the right cavernous sinus. The anterior cerebral arteries and posterior cerebral arteries otherwise appear patent. Grossly patent major dural venous sinuses. Neck CTA demonstrates several areas of beading of the wall of the internal carotid arteries, which are also significantly tortuous. No large vessel occlusion. There also appear to be several scattered arterial collaterals extending along the length of both internal carotid arteries. The vertebral arteries and basilar artery are patent. No mass is noted within the visualized portions of the cervical soft tissues or lung apices. 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 There is also asymmetric loss of enhancement of the left cavernous sinus suspicious for cavernous sinus thrombosis. Significant tortuosity and beaded appearance of both internal carotid arteries in the neck, which is consistent with a STRUCTURAL STEEL ERECTOR vasculitis. No large vessel occlusion. Noncontrast head CT is normal, without hemorrhage or significant vascular territory infarct. Consider follow-up MRI. The study was analyzed using artificial intelligence software for large vessel occlusion detection. Findings discussed with Marcelo Calderon by Dr. Mitchell at 6:55 PM, 11/25/2024 Electronically signed by James Mitchell 11-25-2024 7:01 PM Chest CTA 11/25/24 16:21 CT angiogram with and without IV contrast History: Chest pain COMPARISON: None TECHNIQUE: CT angiography of the chest was performed without IV contrast followed by IV contrast, including 3D post processing CTA image reconstruction. Dose reduction techniques were achieved by using automatic exposure control and/or adjustment of mA and/or kV according to patient size and/or use of iterative reconstruction technique. FINDINGS: Diagnostic quality: Adequate There is no evidence for pulmonary embolism. No aortic dissection. No aortic aneurysm. No significant coronary calcification. The heart is not enlarged. There is no pericardial effusion. There are no abnormally enlarged hilar or mediastinal lymph nodes. The central tracheobronchial tree is clear. Mild streaky bibasilar peripheral atelectasis, otherwise of the lungs are clear. There is no pleural effusion. Limited visualized upper abdomen. No destructive osseous changes are seen. IMPRESSION: No acute thoracic aortic pathology. Mild bibasilar atelectasis. Electronically signed by James Mitchell 11-25-2024 7:01 PM Medications Administered Morphine 6 g total Zofran 4 megs IV Baclofen 10 mg ASA 81 mg Acetaminophen 650 mg ECG Additional Comments: NSR, right superior axis deviation 90 bpm, CO 154, QRS 84, QT/QTc 376 459, PRT */229/148 Code Status & VTE Plan Code Status Full Supervising Physician Co-Signing Physician Notes Patient seen and examined, chart reviewed, case discussed with CALDERON Mendoza and I agree with the assessment and plan as above. Patient with left sided subscapular, shoulder and neck pain. Initially worsened now somewhat improved. Imaging findings as above - concern for possible cerebral vasculitis. Patient is not presenting with any neurologic complaints - no VALDEZ, visual changes, seizure, focal findings. No personal or family history of vasculitis or rheumatologic issues On exam she is resting - sitting in chair, still with left shoulder pain +S1/S2, regular, no m/r/g Lungs CTA anteriorly Abd soft, NT/ND Ext - no edema Pain with palpation of left rhomboid, cervical paraspinal musculature and posterior occiput Labs and images reviewed Assessment/Plan Pain likely musculoskeletal - will manage with Lidoderm, Tylenol, Baclofen Neuro checks, Lipids, A1C, Echocardiogram ESR, CRP, RIC and ANCA for possible vasculitis Neurology Consultation appreciated Patient needs to have MRI for further evaluation of possible vasculitis - unable to perform MRI at our facility at this time, unfortunately. Transfer to [facility] [place] has been declined this evening - should be re-evaluated in AM Remainder as above PG Care Time/CCT Total # of Minutes Spent Total Time Spent with Patient: Total time spent is greater than 50% in coordination of care (as documented) at patient's floor/unit and/or counseling patient: Coding Level of Care Code 33634 INT INP/OBS CARE 3/75MIN Diagnoses Cerebral vasculitis I67.7 Left shoulder pain M25.512
[2024-11-25 23:13] LABS: C Reactive Protein 8.58 mg/dl (0-0.5)
[2024-11-26] MEDS ORDERED: ONDANSETRON INJ 2 MG/ML 2 ML VIAL IV PRN (00:08)
[2024-11-26] MEDS ORDERED: ALUMINUM/MAGNESIUM SUSP 30 ML UDC PO PRN (00:08)
[2024-11-26] MEDS ORDERED: MAGNESIUM HYDROXIDE SUSP 30 ML UDC PO PRN (00:08)
[2024-11-26] MEDS: ACETAMINOPHEN 325 MG TAB PO PRN (01:15)
[2024-11-26] MEDS: KETOROLAC TROMETHAMINE 10 MG TABLET PO STA (03:53)
--- NOTE | 2024-11-26 09:01 | Electrocardiogram Report ---
Test Reason : Blood Pressure : */* mmHG Vent. Rate : 90 BPM Atrial Rate : 90 BPM P-R Int : 154 ms QRS Dur : 84 ms QT Int : 376 ms P-R-T Axes : * 229 148 degrees QTcB Int : 459 ms Suspect limb lead placement error Normal sinus rhythm Right superior axis deviation Abnormal ECG When compared with ECG of 25-Nov-2024 05:24, QRS axis Shifted left Confirmed by Maximiliano Alvarez ([id number]) on 11/26/2024 9:00:59 AM Referred By: Miguel Evans Confirmed By: Maximiliano Alvarez
[2024-11-26] MEDS: BACLOFEN 10 MG TAB PO SCH (09:44)
[2024-11-26] MEDS: ASPIRIN 81 MG ECTAB PO SCH (09:45)
[2024-11-26] MEDS: LIDOCAINE 5% 1 PATCH TD SCH (09:45)
--- NOTE | 2024-11-26 10:50 | Neurology Consultation ---
Date of Consultation November 26, 2024 Assessment & Plan (1) Left shoulder pain: (2) Abnormal computed tomography angiography (CTA) of neck: (3) Carotid stenosis: Plan Patient presented with left posterior shoulder/scapular pain and spasms radiating into the left neck. Neurologic examination is entirely within normal limits with no focal findings, meningeal signs, or encephalopathy. She has no cranial nerve deficits or upper motor neuron findings. 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 After reviewing CT angiography with Dr. Henderson there does not seem to be anything acute or active and all of the changes are likely consistent with old atherosclerosis on the left side. It is chronic as there are collaterals already formed. The patient clinically has nothing to suggest a cavernous sinus thrombosis or MAINTENANCE ANALYST vasculitis (no headache, altered mental status, meningeal signs or any cranial nerve deficit). She does have an elevated ESR and CRP. Although she does not seem to have an obvious infection, she could have an inflammatory condition. Recommendations: 1. Echocardiogram 2. Consider LP but will hold on this for now. 3. Laboratory studies to include RIC 12, B12, anticardiolipin antibodies, serum cryoglobulins, ANCA, immunoelectrophoresis 4. Dual antiplatelet therapy with 81 mg aspirin and 75 mg clopidogrel daily. Do this for 3 weeks and then stay on clopidogrel alone. 5. Agree with baclofen 10 mg 3 times a day. 6. MRI of the brain with and without contrast, MRA of the head (no need for contrast), and MRV when able to get these studies. 7. There is no indication for steroids or antibiotics at this time but we may consider depending on the above test results. 8. Patient needs a PCP. Overall, I spent a total of 100 minutes with this case including review of records, review of CT films, direct evaluation the patient at bedside, report generation, and discussion of the case with the patient and RN at bedside, Zandra Rodriguez PA-C, and Dr. Henderson radiology including differential diagnosis and treatment options. History of Present Illness Reason for Consultation: Patient is a 69-year-old, who was asked to see at the request of Josefa Mendoza PA-C, for neurologic consultation regarding abnormal CT angiography and other issues Requesting Physician: Josefa Mendoza PA-C Attending Physician: Horacio Lazcano History of Present Illness This patient has a history of knee pain and stiffness intermittently for the last several years (since immediately after a COVID-vaccine). About 2 years ago, she had a right biceps tear. Her shoulder is stable but weak right. Other than dyslipidemia, she does not have any significant active medical problems. About 2 weeks ago she had some left scapular pain lasting a day and then resolved. On May 22 she had the onset of more significant left scapular pain which was sharp and knifelike. It would spasm in the last several minutes at a time coming and going over the next 2 to 3 days. By November 24 the pain would radiate from the left scapula up towards the posterior right shoulder and into the left neck posteriorly and laterally. Again, this would come and go mostly with movement of her neck or torso and heather with sitting still. Taking a deep breath might trigger this pain also. Otherwise, she has no spine pain and she has had no headaches. She has no double vision or droopy eyelids, vision loss, hearing loss, tinnitus, ear pain, numbness or pain on her face or facial weakness. She can swallow and speak well and has no mentation issue. Her arms and legs are asymptomatic, without pain, weakness, or numbness. Today she is about the same as yesterday with the symptoms. She feels some tightness and stiffness in her left posterior shoulder girdle and left side of her neck. She arrived to the emergency room at 0449 on November 25 with a temperature of 37.0, pulse 91, respiratory rate 14, blood pressure 152/90, and O2 saturation 96%. CBC and CHEM profile were unremarkable. Examination including neurologic examination was largely unremarkable and she was eventually sent home. She returned at 1555 on November 25 with a temperature of 36.6, pulse 99 regular, respiratory rate 18, blood pressure 148/91, and O2 saturation 94%. Examination, again, was nonfocal from a neurologic standpoint. Again, she denied headaches or any other cranial nerve issues. CBC was unremarkable. Sed rate was 47 and CRP was 8.58. CHEM profile was unremarkable as was magnesium and Lyme antibody titers. CT scan of the head was unremarkable. CT angiography of the head apparently showed left M1 occlusion (likely chronic) and changes consistent with cavernous sinus thrombosis. CT angiography of the neck revealed some tortuous internal carotid arteries, consistent with vasculitis versus other. [place] telestroke was consulted with Dr. Finney and she recommended MRI of the head with and without contrast, MRA of the head, MRV of the head, and multiple laboratory studies. She also recommended an echocardiogram and to initiate 81 mg aspirin. Despite being told that we do not have MRI capabilities because our machine is under repair, she did not transfer the patient to [facility]. She instructed of the patient got worse than she could be transferred again. Patient had no changes overnight. Today, triglycerides 71 and total cholesterol 137. Hemoglobin A1c is pending. I reviewed the CT angiography films with Dr. Henderson. The left M1 segment occlusion/stenosis is old as there are well-formed collaterals. In addition, the distal left internal carotid artery is tiny and there is likely not a cavernous sinus thrombosis present. The internal carotid arteries are somewhat torturous but likely old and secondary to atherosclerosis as opposed to active MAINTENANCE ANALYST vasculitis. Therefore, all of the CTA findings are likely old/chronic. Allergies Allergy/AdvReac Type Severity Reaction Status Date / Time cat dander Allergy Unknown ALLERGY Verified 10/19/24 11:51 SYMPTOMS No Known Drug Allergies Allergy Unknown Verified 10/19/24 11:51 Home Medications Medication Instructions Recorded Confirmed Type acetaminophen 650 mg 650 mg PO PRN 02/02/24 11/25/24 History tablet,extended release (Tylenol 8 Hour) cyclobenzaprine 10 mg tablet 10 mg PO BID PRN muscle spasm #20 11/25/24 11/25/24 Rx tabs etodolac 400 mg tablet 400 mg PO UD 11/25/24 11/25/24 History Patient History Medical History Biceps muscle tear Smoker History of COVID-19 ? per IGg testing 01/06/21 pt + for antibodies--pt states she was sick in July 2020--had severe back pain, fever Degenerative arthritis of knee, bilateral Surgical History Hx of bilateral cataract extraction H/O thumb surgery History of colonoscopy S/P wisdom tooth extraction HX S/P ACL repair HX, RIGHT S/P tonsillectomy HX Family History Brother Family history of diabetes mellitus Brother Family history of diabetes mellitus Mother , age 72 pancreatic cancer. Pancreatic cancer Father , age 80 of a stroke Stroke Other No history of previous surgery Denies family history of Ovarian cancer Prostate cancer Myocardial infarction Breast cancer Colorectal cancer Social History Smoking Status: Current every day smoker Tobacco Type: Cigarettes Age Started Using Tobacco: 24; packs per day: 0.5; Cigarettes Per Day: 1/2 pack; Second Hand Exposure: No; Do You Dip or Chew Tobacco: No; Hx Alcohol Use: Yes Alcohol type: wine Alcohol Intake Frequency: Monthly or Less Hx Substance Use: No Preferred Language: Greek Communication Ability: Effective Visual Impairment: No Limitations Hearing Ability: Normal Manager Export Required: No Beliefs That Will Affect Care: None marital status: Single Current Living Situation: Alone current occupational status: employed 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 How many Children do You have: 2 Feels Safe at Home: Yes Childhood Exposure to Second-Hand Smoke: No Diet: regular Diet Comment: regular caffeine: Yes during the past year weight has: remained stable Dental Care, Regularly: Yes Physical Activity Frequency: Daily Seatbelt Use: always Sunscreen Use: Yes Assistive Devices: None Review of Systems Constitutional: + fatigue; no fever and no weakness Eyes: no diplopia, no eye pain and no worsening vision Ear, Nose, Mouth, Throat: no ear pain, no tinnitus, no hearing loss, no dizziness, no snoring, no hoarseness and no dysphagia Respiratory: no cough and no dyspnea Cardiovascular: no chest pain, no palpitations and no lightheadedness Gastrointestinal: no abdominal pain, no nausea and no vomiting Genitourinary: no dysuria, no urinary frequency and no urinary incontinence Musculoskeletal: no back pain, no neck pain, no radicular pain, no joint pain and no myalgia Integumentary: no rash and no lesions Neurologic: + localized weakness; no gait abnormalit y, no generalized weakness, no tingling, no numbness, no tremor(s), no abnormal movements, no headache(s), no abnormal speech, no confusion and no memory loss Psychiatric: no depression, no irritability, no anxiety, no difficulty concentrating, no confusion and no hallucinations Endocrine: no fatigue and no flushing Hematologic / Lymphatic: no easy bleeding and no easy bruising Allergy / Immunological: no urticaria and no problem reported Exam (Neuro) Physical Exam: The patient is right-handed. The patient is awake, alert, and attentive. Speech is normal without any aphasia or dysarthria. Mentation and thought processes are intact, with full orientation and normal fund of knowledge. Mood and affect are normal and ap propriate. Appearance and grooming are normal. Short and long-term memory are intact. Pupils are 4 mm bilaterally and reactive to light. Extraocular eye muscles are intact without nystagmus. Visual acuity and visual christensen seem normal grossly to confrontation. There are no deficits to sensation in the face in all 3 distributions of the fifth cranial nerve bilaterally. Corneal reflexes are positive bilaterally. Facial strength and symmetry was normal bilaterally. Hearing seems intact grossly to voice and finger rub bilaterally. Palate moves well without asymmetry. There is normal sternocleidomastoid and trapezius strength bilaterally. Tongue is midline with good strength bilaterally. Neck has a limited range of motion with some discomfort. There are no cervical bruits bilaterally. There are no cranial or ocular bruits. Heart is without murmur. There is a regular rhythm and rate. Cervical, thoracic, and lumbar spine are nontender to palpation. There is some spasm of the posterior cervical spinal muscles and tenderness into the left scapula along the medial and posterior border. Gait is narrow based, with good arm swing, turns, and stance. Balance is normal eyes open or closed. With outstretched arms there is no drift. There are no resting, postural, or action tremors. There is no ataxia with finger to nose testing. There is good facility in the hands. No other abnormal involuntary movements are noted. Motor strength is 5/5 diffusely in the arms bilaterally including deltoids, biceps, triceps, brachioradialis, wrist flexors and extensors, review analyst, and intrinsic hand muscles. Motor strength is 5/5 diffusely in the legs bilaterally including hip flexors, quadriceps, hamstrings, gastrocnemius, tibialis anterior, tibialis posterior, and Peroneii muscles bilaterally. Toe extensors are normal and there is good bulk in the extensor digitorum brevis muscles bilaterally. Left supraspinatus, infraspinatus, and rotator cuff muscles are 5/5 diffusely. The limbs have good tone without rigidity or spasticity. There is no atrophy noted in the muscles. Muscle bulk is normal, there is no tenderness to palpation, no myotonia to percussion, and no fasciculations seen. Sensory examination is intact to touch and pin throughout all 4 limbs diffusely. Reflexes are 1/4 in the biceps, triceps, brachioradialis, quadriceps, and Achilles tendons bilaterally. Toes are downgoing with plantar stimulation bilaterally. Peripheral pulses are present and of normal quality distally in all 4 limbs. There is no peripheral edema noted in the limbs. Results & Data Vital Signs (Past 12 Hours) Vital Signs Temp Pulse Pulse Resp BP BP Pulse Ox 11/26/24 07:58 36.6 C 76 14 130/80 90 11/26/24 07:26 74 11/26/24 03:35 37.2 C 84 20 109/70 92 11/26/24 00:23 80 11/26/24 00:05 36.6 C 73 18 127/79 93 O2 Del Method 11/26/24 07:58 Room Air 11/26/24 07:26 11/26/24 03:35 Room Air 11/26/24 00:23 11/26/24 00:05 Room Air PG Care Time/CCT Total # of Minutes Spent Total Time Spent with Patient: Total time spent is greater than 50% in coordination of care (as documented) at patient's floor/unit and/or counseling patient: Coding Level of Care Code 49264 INT INP/OBS CARE 3/75MIN Diagnoses Left shoulder pain M25.512 Abnormal computed tomography angiography (CTA) of neck R93.89 Carotid stenosis I65.29 Time Spent (min) 100
--- NOTE | 2024-11-26 14:12 | XCELERA ---
[id number] \\[id number]
[2024-11-26] MEDS: CLOPIDOGREL BISULFATE 75 MG TAB PO ONE (14:24)
--- NOTE | 2024-11-26 15:54 | Hospitalist Progress Note ---
Date of Service November 26, 2024 Assessment & Plan (1) Cerebral vasculitis: (2) Left shoulder pain: Plan 69-year-old female PMHx dyslipidemia, depression, and the ED for left-sided back and scapular pain, radiating to neck. Patient was evaluated in the ED the morning of arrival and was discharged home with diagnosis of muscle spasm. Came back to the ED because she was having worsening pain. 3 days OYSTER FLOATER the pain started in her left scapula, spread across to the right scapula, and within the past 24 hours went into the left side of her posterior neck. 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 Asymmetric loss of enhancement of left cavernous sinus suspicious for cavernous sinus thrombosis. signifcant tortuosity and beaded appearance of both internal carotid arteries in neck, which is consistent with METAL FABRICATOR WELDER vasculitis. No large vessel occlusion. Head CT 2/3 - negative CXR 2/3 - no acute cardiopulmonary abnormalities identified. Given findings on CTA and inability to perform MRI currently at [facility], patient was considered for transfer however this was declined from an outside hospital. Telestroke consulted in the ED - recommended ESR, CRP, RIC with reflex, lipids, echo, A1c, start aspirin 81 Mg daily, baclofen and lidocaine patch for pain, and neurology consult. MRI head w/w/o contrast, MRI head, MRV head CBC/BMP stable CRP elevated at 8.58, ESR 47 Lipid panel stable. Urinalysis negative B12 mildly low at 176. Lyme and COVID both negative. Echo 2/4: LVEF 55-60%, normal LV wall thickness, no significant valvular disease. Neurology consulted 2/ - upon 2nd read of imaging from radiology, Dr. Henderson did not seem to see anything acute or active & all of changes likely consistent with atherosclerosis on left side. Patient also has nothing clinically to suggest cavernous sinus thrombosis or METAL FABRICATOR WELDER vasculitis. Recommendations include: RIC, B12, anticardiolipin antibodies, serum cryoglobulins, ANCA, immunoelectrophoresis. DAPT x 3 weeks then Plavix daily thereafter. Continue Baclofen. MRI, MRA, MRV when able. Consider LP but hold off for now. Added prednisone 60mg x 3 days for shoulder pain. Added toradol 10mg IV q6h prn for pain - max of 6 doses. Dispo: Admit, med/tele VTE prophylaxis: SCDs Case discussed extensively with Dr. Zurita 11/26. Admission and Anticipated Discharge Date Admission Date: November 25, 2024 Subjective Patient seen and examined this morning. Dr. Zurita from neurology present at time of encounter. Patient reports that she has left scapula pain. she reports the only thing that has effectively managed her pain was the toradol she had at 3am. She reports a spasm like pain. She reports she has not done any unusual activities recently. States she was shoveling snow and walked her dog prior to this happening but states that those are typical things for her to do. Physical Exam Constitutional: WD/WN, vitals as above Eyes: PERRL, conjunctivae normal, anicteric sclerae Respiratory: normal respiratory effort, lungs clear to auscultation Cardiovascular: RRR, no murmur, no edema Psychiatric: A+Ox3, euthymic affect Results & Data Results & Data Vital Signs (Past 12 Hours) Vital Signs Temp Pulse Pulse Resp BP BP Pulse Ox 11/26/24 15:31 79 11/26/24 15:25 37.1 C 80 18 141/88 H 97 11/26/24 11:57 37.1 C 86 14 136/81 93 11/26/24 08:00 11/26/24 07:58 36.6 C 76 14 130/80 90 11/26/24 07:26 74 O2 Del Method 11/26/24 15:31 11/26/24 15:25 Room Air 11/26/24 11:57 Room Air 11/26/24 08:00 Room Air 11/26/24 07:58 Room Air 11/26/24 07:26 PG Care Time/CCT Total # of Minutes Spent Total Time Spent with Patient: Total time spent is greater than 50% in coordination of care (as documented) at patient's floor/unit and/or counseling patient: Coding Level of Care Code 61036 SUB INP/OBS CARE 3/50MIN Diagnoses Cerebral vasculitis I67.7 Left shoulder pain M25.512
[2024-11-26] MEDS: predniSONE 20 MG TAB PO SCH (17:43)
[2024-11-26] MEDS: KETOROLAC TROMETHAMINE 15 MG/ML VIAL IM PRN (17:45)
[2024-11-26] MEDS: MELATONIN 3 MG TAB PO PRN (21:06)
[2024-11-27 07:08] LABS: Hematocrit (blood only) 39.2 % (37.0-47.0); Hemoglobin 12.8 g/dl (12.0-16.0); Mean Corpuscular Hemoglobin 27.5 pg (25.0-34.0); Mean Corpuscular Hgb Conc 32.7 g/dL (32.0-36.0); Mean Corpuscular Volume 84.3 fL (80.0-100.0); Mean Platelet Volume 10.7 fL (9.4-12.4); Platelet Count 231 K/uL (130-400); RDW Coefficient of Variation 12.6 % (11.5-14.5); RDW Standard Deviation 38.6 fL (36.4-46.3); Red Blood Count 4.65 M/uL (4.20-5.40); White Blood Count 5.51 K/ul (4.8-10.8)
[2024-11-27 07:31] LABS: BUN Creatinine Ratio 26.3 (10-20); Calcium 9.6 mg/dl (8.6-10.3); Creatinine Clr Calc Pharmacy 69.3 ml/min; Potassium 4.3 mmol/L (3.5-5.1)
--- NOTE | 2024-11-27 09:54 | Neurology Progress Note ---
Date of Service November 27, 2024 Assessment & Plan (1) Left shoulder pain: (2) Abnormal computed tomography angiography (CTA) of neck: (3) Carotid stenosis: Plan Patient presented with left posterior shoulder/scapular pain and spasms radiating into the left neck. She is somewhat improved Neurologic examination is entirely within normal limits with no focal findings, meningeal signs, or encephalopathy. She has no cranial nerve deficits or upper motor neuron findings. 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 After reviewing CT angiography with Dr. Henderson there does not seem to be anything acute or active and all of the changes are likely consistent with old atherosclerosis on the left side. It is chronic as there are collaterals already formed. The patient clinically has nothing to suggest a cavernous sinus thrombosis or CART PUSHER vasculitis (no headache, altered mental status, meningeal signs or any cranial nerve deficit). She does have an elevated ESR and CRP. Although she does not seem to have an obvious infection, she could have an inflammatory condition. Recommendations: 1. Physical therapy consultincrease activity as able 2. No indication for LP at this time. 3. Awaiting laboratory studies (which included RIC 12, B12, anticardiolipin antibodies, serum cryoglobulins, ANCA, immunoelectrophoresis). Also add vitamin D 4. Dual antiplatelet therapy with 81 mg aspirin and 75 mg clopidogrel daily. Do this for 3 weeks and then stay on clopidogrel alone. 5. Continue baclofen 10 mg 3 times a day. 6. MRI of the brain with and without contrast, MRA of the head (no need for contrast), and MRV when able to get these studies. 7. Continue prednisone [address] scan of the cervical and thoracic spines (both without contrast) 9. Patient needs a PCP. Overall, I spent a total of 75 minutes with this case including review of records, direct evaluation the patient at bedside, report generation, and discussion of the case with the patient, daughter, and RN at bedside, and Zandra Rodriguez PA-C, including differential diagnosis and treatment options. Admission and Anticipated Discharge Date Admission Date: November 25, 2024 Subjective Patient is feeling fairly well with less posterior shoulder pain. She did have an episode of significant spasm of the left scapular area around 3:00 in the afternoon yesterday lasting 5 minutes. She has had no such spasms since. Patient's daughter was connected via phone the entire time I was with the patient. She is tolerating baclofen although it makes her little sleepy (and she slept better last night). She is getting prednisone as well. Echocardiogram was unremarkable/normal. CBC and CHEM profile is unremarkable. B12 was low at 176. Blood pressure is 136/84 with a pulse in the 70s. She is afebrile at 36.6. Patient has no headaches, confusion, vision issues, double vision or droopy eyelids, swallowing issues, numbness/tingling/pain in the face, or speech problems. She denies any pain, weakness, or numbness in the limbs. She does have tightness of the muscles of the posterior left shoulder girdle radiating up to the left shoulder and left neck. Results & Data Vital Signs (Past 12 Hours) Vital Signs Temp Pulse Pulse Resp BP Pulse Ox O2 Del Method 11/27/24 07:23 36.6 C 71 18 136/84 94 Room Air 11/27/24 07:00 68 11/27/24 03:25 36.7 C 77 20 144/78 H 92 Room Air 11/26/24 23:24 36.8 C 80 20 139/81 95 Room Air 11/26/24 21:55 82 Exam (Neuro) Physical Exam: She is awake and alert. Speech is without aphasia or dysarthria. Mood and affect seem normal and appropriate. Thought processes are intact with good long and short-term memory. There is no facial droop and there is good symmetry upper and lower face bilaterally. Tongue is midline with good strength bilaterally. Sensation is normal in the face in all 3 distributions of the 5th cranial nerve. Extraocular muscles are intact without nystagmus. There is no ptosis. Pupils are 4 mm bilaterally and reactive to light. Neck has a reasonable range of motion but she has "tightness" posteriorly particularly on the left. She has tenderness in the left shoulder girdle posteriorly. With outstretched arms there is no drift. There is no ataxia with finger-nose testing bilaterally. There is no resting, postural, or action tremor and there is good facility the hands bilaterally. Motor strength is 5/5 diffusely in all major muscle groups in the arms and legs both proximally and distally. Stance sitting in chair is normal. PG Care Time/CCT Total # of Minutes Spent Total Time Spent with Patient: Total time spent is greater than 50% in coordination of care (as documented) at patient's floor/unit and/or counseling patient: Coding Level of Care Code 85035 SUB INP/OBS CARE 3/50MIN Diagnoses Left shoulder pain M25.512 Abnormal computed tomography angiography (CTA) of neck R93.89 Carotid stenosis I65.29 Time Spent (min) 75
[2024-11-27] MEDS: POLYETHYLENE (MIRALAX) 17 GM PACK PO PRN (10:07)
[2024-11-27] MEDS: CLOPIDOGREL BISULFATE 75 MG TAB PO SCH (10:08)
--- NOTE | 2024-11-27 11:44 | CT Scan Report ---
CT thoracic spine wo con CLINICAL HISTORY: scapula/back pain COMPARISON STUDY: 11/25/2024 FINDINGS: There are mild diffuse degenerative changes. No fracture or subluxation. No severe central canal narrowing seen. There is mild bilateral neural foraminal narrowing at T8-9. No paraspinal soft tissue hematoma seen. IMPRESSION: 1. No acute fracture. 2. Mild degenerative changes. ACT 112: Negative or not required by law. Electronically signed by: Pastor Bryant M.D. 11/27/2024 11:43 AM
--- NOTE | 2024-11-27 11:57 | CT Scan Report ---
CT cervical spine wo con CT DOSE: 1750.63 mGy.cm CLINICAL HISTORY: 69 years-old Female with neck pain. Acute neck pain without reported trauma COMPARISON: CT thoracic spine of same day, CTA neck to November 25, 2024 TECHNIQUE: Multiple axial CT images of the cervical spine were obtained without contrast. A dose low ering technique was utilized adhering to the principles of ALARA. FINDINGS: Moderate multilevel and vertebral disc space narrowing, advanced spondylotic spurring with moderate to severe facet arthrosis. There is straightening of the normal cervical lordosis. Multileve l central canal and neural foraminal narrowing is suboptimally evaluated by CT technique. No acute fr acture, subluxation or endplate erosion identified. No suspicious bone lesions. The cervical soft tissues appear unremarkable. The visualized lung apices appear clear. IMPRESSION: No acute cervical spine fracture or subluxation. ACT 112: Negative or not required by law. The above report was generated using voice recognition software. It may contain grammatical, syntax o r spelling errors. Electronically signed by: Lyle Mckeon M.D. 11/27/2024 11:54 AM
--- NOTE | 2024-11-27 15:29 | Hospitalist Progress Note ---
Date of Service November 27, 2024 Assessment & Plan (1) Cerebral vasculitis: (2) Left shoulder pain: Plan 69-year-old female PMHx dyslipidemia, depression, and the ED for left-sided back and scapular pain, radiating to neck. Patient was evaluated in the ED the morning of arrival and was discharged home with diagnosis of muscle spasm. Came back to the ED because she was having worsening pain. 3 days [employer]AND [employer] the pain started in her left scapula, spread across to the right scapula, and within the past 24 hours went into the left side of her posterior neck. findings on CTA and inability to perform MRI currently at [facility], patient was considered for transfer however this was declined from an outside hospital. 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 Asymmetric loss of enhancement of left cavernous sinus suspicious for cavernous sinus thrombosis. signifcant tortuosity and beaded appearance of both internal carotid arteries in neck, which is cons istent with ADOBE LAYER vasculitis. No large vessel occlusion. Head CT 2/3 - negative CXR 2/3 - no acute cardiopulmonary abnormalities identified. Echo 2/: LVEF 55-60%, normal LV wall thickness, no significant valvular disease. Cervical spine and thoracic spine CT 2/ - negative for acute fracture or subluxation. Telestroke consulted in the ED - recommended ESR, CRP, RIC with reflex, lipids, echo, A1c, start aspirin 81 Mg daily, baclofen and lidocaine patch for pain, and neurology consult. MRI head w/w/o contrast, MRI head, MRV head CBC/BMP stable CRP elevated at 8.58, ESR 47 Lipid panel stable. Urinalysis negative B12 mildly low at 176. - started on PO supplementation, can continue at discharge. Lyme and COVID both negative. RIC, Anti-cardiolipin antibodies, serum cryoglobulins, ANCA, i mmunoelectrophoresis - pending DAPT x 3 weeks w/ ASA and Plavix then Plavix daily there after. Continue Baclofen prednisone 60mg x 3 days for shoulder pain. - consider prednisone taper on dc since this is improving symptoms. Toradol 10mg IV q6h prn for pain - max of 6 doses. Neurology consulted 11/26 - upon 2nd read of imaging from radiology, Dr. Henderson did not seem to see anything acute or active & all of changes likely consistent with atherosclerosis on left side. Patient also has nothing clinically to suggest cavernous sinus thrombosis or ADOBE LAYER vasculitis. Discussed w/ Dr. Zurita on 11/27 - patient will remain inpatient until she is able to have MRI completed at our facility. Dr. Zurita did give patient option of performing this outpatient but she elected to remain inpatient. Also recommended to obtain CT of cervical/thoracic spine and check vitamin D level. Dispo: Admit, med/tele VTE prophylaxis: SCDs Case discussed extensively with Dr. Zurita 11/26 and 11/27. Admission and Anticipated Discharge Date Admission Date: November 25, 2024 Subjective Patient seen and examined this afternoon. At time of encounter, patient was resting comfortably in bed. She denied any complaints of pain. She reports that her left scapula pain has improved after starting the steroids yesterday. Physical Exam Constitutional: WD/WN, vitals as above Eyes: PERRL, conjunctivae normal, anicteric sclerae Respiratory: breathing unlabored Cardiovascular: well perfused Psychiatric: A+Ox3, euthymic affect Results & Data Results & Data Vital Signs (Past 12 Hours) Vital Signs Temp Pulse Pulse Resp BP Pulse Ox O2 Del Method 11/27/24 15:04 36.8 C 81 18 132/78 94 Room Air 11/27/24 12:06 36.5 C 72 18 177/94 H 94 Room Air 11/27/24 07:23 36.6 C 71 18 136/84 94 Room Air 11/27/24 07:00 68 11/27/24 03:25 36.7 C 77 20 144/78 H 92 Room Air PG Care Time/CCT Total # of Minutes Spent Total Time Spent with Patient: Total time spent is greater than 50% in coordination of care (as documented) at patient's floor/unit and/or counseling patient: Coding Level of Care Code 83754 SUB INP/OBS CARE 3/50MIN Diagnoses Cerebral vasculitis I67.7 Left shoulder pain M25.512
[2024-11-27] MEDS ORDERED: POLYETHYLENE (MIRALAX) 17 GM PACK PO PRN (20:13)
[2024-11-27] MEDS: SENNA 8.6 MG TAB PO SCH (20:55)
[2024-11-27 22:57] LABS: Anti Cardiolipin Ab IgG <2.0 GPL-U/mL; Anti Cardiolipin Ab IgM 28.9 MPL-U/mL
[2024-11-28 06:47] LABS: Estimated Average Glucose 126 mg/dl
[2024-11-28] MEDS: CYANOCOBALAMIN (B-12) 100 MCG TABLET PO SCH (08:26)
[2024-11-28 08:45] LABS: BUN Creatinine Ratio 27.5 (10-20); Calcium 9.2 mg/dl (8.6-10.3); Creatinine Clr Calc Pharmacy 66.2 ml/min
[2024-11-28] MEDS: CHOLECALCIFEROL 125 MCG (5,000 UNITS) TAB PO SCH (10:31)
[2024-11-28] MEDS: KETOROLAC TROMETHAMINE 15 MG/ML VIAL IV PRN (11:17)
--- NOTE | 2024-11-28 11:29 | Neurology Progress Note ---
Date of Service November 28, 2024 Assessment & Plan (1) Left shoulder pain: (2) Abnormal computed tomography angiography (CTA) of neck: (3) Carotid stenosis: Plan Patient presented with left posterior shoulder/scapular pain and spasms radiating into the left neck. She is somewhat improved although had a spasm this morning. It may be that the origin of this spasm and pain comes from the cervical spine and shoulder. 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 Neurologic examination is entirely within normal limits with no focal findings, meningeal signs, or encephalopathy. She has no cranial nerve deficits or upper motor neuron findings. 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 After reviewing CT angiography with Dr. Henderson there does not seem to be anything acute or active and all of the changes are likely consistent with old atherosclerosis on the left side. It is chronic as there are collaterals already formed. The patient clinically has nothing to suggest a cavernous sinus thrombosis or [employer] vasculitis (no headache, altered mental status, meningeal signs or any cranial nerve deficit). She does have an elevated ESR and CRP. Although she does not seem to have an obvious infection, she could have an inflammatory condition. The patient has a low vitamin D at 21. Recommendations: 1. Physical therapy consultincrease activity as able 2. No indication for LP at this time. 3. Awaiting laboratory studies (which included RIC 12, B12, anticardiolipin antibodies, serum cryoglobulins, ANCA, immunoelectrophoresis). Also add vitamin D 4. Dual antiplatelet therapy with 81 mg aspirin and 75 mg clopidogrel daily. Do this for 3 weeks and then stay on clopidogrel alone. 5. Continue baclofen 10 mg 3 times a day. 6. MRI of the brain with and without contrast (with attention to the cavernous sinus) and MRI of the cervical spine without contrast. At this point, MRA and MRV are not indicated. 7. Continue prednisone 60 mg daily. She can begin to taper the prednisone over the next week. 8. Replace vitamin D with 5000 units vitamin D3 daily. 9. Patient needs a PCP. Overall, I spent a total of 50 minutes with this case including review of records, review of CT films direct evaluation the patient at bedside, report generation, and discussion of the case with the patient, daughter, and RN at bedside, and Zandra Rodriguez PA-C, including differential diagnosis and treatment options. Admission and Anticipated Discharge Date Admission Date: November 25, 2024 Subjective Patient had another spasm this morning of the left posterior shoulder girdle into the top of the shoulder and neck. She has no symptoms of pain, weakness, or numbness in the upper or lower extremities, no headache, vision issues, mentation problems, speech or swallowing problems, or face pain. She has no mental status changes either. Blood pressure is 150/77 and she is afebrile. Vitamin D was low at 21 CT of the thoracic spine shows some diffuse degenerative changes of bone of a mild degree. CT scan of the cervical spine showed moderate diffuse degenerative changes of disc and bone with no obvious cord impingement. I reviewed these films Daughter was again present via phone and had a number of questions for me to answer. Results & Data Vital Signs (Past 12 Hours) Vital Signs Temp Pulse Resp BP Pulse Ox O2 Del Method 11/28/24 07:38 36.6 C 75 18 150/77 H 96 Room Air 11/28/24 03:10 36.5 C 66 16 131/71 94 Room Air 11/28/24 00:57 36.8 C 78 20 132/74 95 Room Air Exam (Neuro) Physical Exam: She is awake and alert. Speech is without aphasia or dysarthria. Mood and affect seems normal and appropriate. Thought processes are intact to conversation Extraocular eye muscles are intact without nystagmus. There is no facial droop or asymmetry of the face. There is good strength in the upper and lower face bilaterally. There is no numbness or altered sensation of the face bilaterally. Tongue is midline with good strength. Palate moves well. Neck has a limited range of motion but there is no pain. She has some tightness of the paraspinal muscles left greater than right side and some tightness with palpation of the left shoulder and shoulder girdle. Coordination is normal in the arms without tremor or ataxia Motor strength seems 5/5 diffusely in all major muscle groups the arms and leg both proximally and distally. PG Care Time/CCT Total # of Minutes Spent Total Time Spent with Patient: Total time spent is greater than 50% in coordination of care (as documented) at patient's floor/unit and/or counseling patient: Coding Level of Care Code 40426 SUB INP/OBS CARE 3/50MIN Diagnoses Left shoulder pain M25.512 Abnormal computed tomography angiography (CTA) of neck R93.89 Carotid stenosis I65.29 Time Spent (min) 50
--- NOTE | 2024-11-28 12:57 | Orthopedic Consultation ---
Date of Consultation November 28, 2024 Assessment & Plan (1) Cervical spondylosis: Findings discussed with patient. Seems to be a cervical spine problem. Could be arthritis. I do not see any signs of radiculopathy. Does not look like an intrinsic shoulder problem. She is vitamin D deficient and this is being addressed. Her inflammatory markers are elevated. There is no obvious source of infection noted or intense inflammation such as gout. Patient does have a history of smoking.She does have evidence of arthritis on her cervical spine CT. No stenosis noted. She is being treated with muscle relaxants, anti- inflammatories, and steroids. All of which I think are appropriate. She is scheduled for an MRI of her brain and neck. She is also scheduled to begin some physical therapy. Would add a soft cervical collar and heat. Will check some plain x-rays of the cervical spine and follow-up with the patient tomorrow regarding these findings. 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 History of Present Illness Attending Physician: Horacio Lazcano History of Present Illness Paulette is 69 years old. She is right-hand dominant. 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 This was located medial to the scapula. Because of severe pain and difficulty sleeping she went to the emergency room. She was evaluated treated and released. She came back to the emergency room and was admitted to the hospital. She had studies evaluating her head and neck which led to evaluation of some occluded arteries in the head neck area. She has been seen by neurology. There is no history of injury. She has not had a problem like this before. She denies tingling or numbness. The pain has changed somewhat since initial presentation and is now located more in the left lateral neck and base of the trapezius. It had at other times gone diagonally across her back to her right shoulder. The pain does not go into her left arm. She does have some parest hesias sounds like more so in her right arm versus the left which is chronic. She has had previous problems with her right shoulder. Tylenol helped. The pain comes intermittently and is hard to predict and not associated with any particular movement or activity. Allergies Allergy/AdvReac Type Severity Reaction Status Date / Time cat dander Allergy Unknown ALLERGY Verified 10/19/24 11:51 SYMPTOMS No Known Drug Allergies Allergy Unknown Verified 10/19/24 11:51 Home Medications Medication Instructions Recorded Confirmed Type acetaminophen 650 mg 650 mg PO PRN 02/02/24 11/25/24 History tablet,extended release (Tylenol 8 Hour) cyclobenzaprine 10 mg tablet 10 mg PO BID PRN muscle spasm #20 11/25/24 11/25/24 Rx tabs etodolac 400 mg tablet 400 mg PO UD 11/25/24 11/25/24 History Patient History Medical History Biceps muscle tear Smoker History of COVID-19 ? per [facility] testing 01/06/21 pt + for antibodies--pt states she was sick in July 2020--had severe back pain, fever Degenerative arthritis of knee, bilateral Surgical History Hx of bilateral cataract extraction H/O thumb surgery History of colonoscopy S/P wisdom tooth extraction HX S/P ACL repair HX, RIGHT S/P tonsillectomy HX Family History Brother Family history of diabetes mellitus Brother Family history of diabetes mellitus Mother , age 72 pancreatic cancer. Pancreatic cancer Father , age 80 of a stroke Stroke Other No history of previous surgery Denies family history of Ovarian cancer Prostate cancer Myocardial infarction Breast cancer Colorectal cancer Social History Smoking Status: Current every day smoker Tobacco Type: Cigarettes Age Started Using Tobacco: 24; packs per day: 0.5; Cigarettes Per Day: 1/2 pack; Second Hand Exposure: No; Do You Dip or Chew Tobacco: No; Hx Alcohol Use: Yes Alcohol type: wine Alcohol Intake Frequency: Monthly or Less Hx Substance Use: No Preferred Language: Armenian Communication Ability: Effective Visual Impairment: No Limitations Hearing Ability: Normal 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 Beliefs That Will Affect Care: None marital status: Single Current Living Situation: Alone current occupational status: employed 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 Spurling's maneuver does not elicit any radicular symptoms. Arm raise test is negative. There is full painless movement of the left shoulder 170 degrees of forward elevation internal rotation to approximately T10 with a negative lift off. External rotation of 40 to 45 degrees which is equal bilaterally. She has 5 out of 5 strength on finger abduction thumb extension gripping palmar abduction of the thumb wrist extension elbow flexion extension shoulder internal and external rotation and forward elevation. There is no substitution. She reports some mild numbness in the tips of her fingers. Her radial pulses 1+. The left arm is not swollen. There is a lidocaine patch located over the trapezius which is the area where she reports having a hard lump or spasm present. Palpation of this area reveals soft symmetrical muscle without notable swelling or mass. Clavicle shoulder girdle acromion scapula nontender. There is tenderness midline cervical spine. She localizes discomfort to the medial border of the scapula. Neer and Bauman impingement tests are negative. She is awake alert and can move from bed to chair without difficulty and move her left arm without much difficulty. Left and right lateral rotation of the cervical spine elicits increased neck and trapezius discomfort. Results & Data Vital Signs (Past 12 Hours) Vital Signs Temp Pulse Resp BP Pulse Ox O2 Del Method 11/28/24 11:20 36.7 C 72 18 153/99 H 92 Room Air 11/28/24 07:38 36.6 C 75 18 150/77 H 96 Room Air 11/28/24 03:10 36.5 C 66 16 131/71 94 Room Air 11/28/24 00:57 36.8 C 78 20 132/74 95 Room Air Laboratory Results Laboratory Results WBC 5.51 K/ul (4.8-10.8) 11/27/24 06:26 RBC 4.65 M/uL (4.20-5.40) 11/27/24 06:26 Hgb 12.8 g/dl (12.0-16.0) 11/27/24 06:26 POC Hgb 14.6 g/dl (12.0-16.0) 11/25/24 16:56 Hct 39.2 % (37.0-47.0) 11/27/24 06: POC Hct 43 % (37-47) 11/25/24 16:56 MCV 84.3 fL (80.0-100.0) 11/27/24 06: MCH 27.5 pg (25.0-34.0) 11/27/24 06: MCHC 32.7 g/dL (32.0-36.0) 11/27/24 06: RDW Std Deviation 38.6 fL (36.4-46.3) 11/27/24: RDW Coeff of Kike 12.6 % (11.5-14.5) 11/27/24 06: Plt Count 231 K/uL (130-400) 11/27/24 06: MPV 10.7 fL (9.4-12.4) 11/27/24 06: Immature Gran % (Auto) 0.5 % 11/25/24 16:49 Neut % (Auto) 77.5 % 11/25/24 16:49 Lymph % (Auto) 11.5 % 11/25/24 16:49 Gilliam % (Auto) 9.3 % 11/25/24 16:49 Eos % (Auto) 0.9 % 11/25/24 16:49 Baso % (Auto) 0.3 % 11/25/24 16:49 Neut # (Auto) 6.09 K/uL (1.40-6.50) 11/25/24 16:49 Lymph # (Auto) 0.90 K/uL (1.20-3.40) L 11/25/24 16:49 Gilliam # (Auto) 0.73 K/uL (0.11-0.59) H 11/25/24 16:49 Eos # (Auto) 0.07 K/uL (0.00-0.50) 11/25/24 16:49 Baso # (Auto) 0.02 K/uL (0.00-0.20) 11/25/24 16:49 Immature Gran # (Auto) 0.04 K/uL (0.01-0.20) 11/25/24 16:49 ESR 47 mm/hr (0-30) H 11/25/24 16:49 PT 10.3 Seconds (9.0-12.0) 11/25/24 16:49 INR 0.9 (0.9-1.1) 11/25/24 16:49 APTT 28 Seconds (21-31) 11/25/24 16:49 PTT Ratio 1.0 11/25/24 16:49 POC Sodium 140 mmol/L (135-144) 11/25/24 16:56 Sodium 143 mmol/L (136-145) 11/28/24 07:53 POC Potassium 4.0 mmol/L (3.3-5.0) 11/25/24 16:56 Potassium 4.0 mmol/L (3.5-5.1) 11/28/24 07:53 POC Chloride 104 mmol/L (101-112) 11/25/24 16:56 Chloride 111 mmol/L (98-107) H 11/28/24 07:53 Carbon Dioxide 27 mmol/L (21-32) 11/28/24 07:53 POC Total CO2 25 mmol/L (24-31) 11/25/24 16:56 Anion Gap 5 (3-11) 11/28/24 07:53 POC Anion Gap 16.0 mmol/L (16-25) 11/25/24 16:56 POC BUN 13 mg/dl (7-18) 11/25/24 16:56 BUN 22 mg/dl (6-23) 11/28/24 07:53 Creatinine 0.80 mg/dl (0.6-1.2) 11/28/24 07:53 POC Creatinine 0.9 mg/dl (0.6-1.3) 11/25/24 16:56 Est Cr Clr Drug Dosing 66.2 ml/min 11/28/24 07:53 eGFR 79.22 11/28/24 07:53 BUN/Creatinine Ratio 27.5 (10-20) H 11/28/24 07:53 Glucose 88 mg/dl (70-99(Fasting)) 11/28/24 07:53 POC Glucose (other) 118 mg/dl (70-99) H 11/25/24 16:56 Estimat Average Glucose 126 mg/dl 11/26/24 05:34 Hemoglobin A1c 6.0 % (4.5-5.6) H 11/26/24 05:34 Calcium 9.2 mg/dl (8.6-10.3) 11/28/24 07:53 POC Ioniz Calcium Hector 1.21 mmol/l (1.12-1.32) 11/25/24 16:56 Magnesium 2.3 mg/dl (1.7-2.4) 11/25/24 16:49 Total Bilirubin 0.7 mg/dl (0.2-1.0) 11/25/24 16:49 AST 15 U/L (13-39) 11/25/24 16:49 ALT 14 U/L (7-52) 11/25/24 16:49 Alkaline Phosphatase 56 U/L (34-104) 11/25/24 16:49 Total Creatine Kinase 78 U/L (26-192) 11/25/24 16:49 Troponin I High Sens 7.2 pg/ml (0-14) 11/25/24 16:49 C-Reactive Protein 8.58 mg/dl (0-0.5) H 11/25/24 16:49 Total Protein 7.1 gm/dl (6.0-8.3) 11/25/24 16:49 Albumin 3.9 gm/dl (3.4-5.0) 11/25/24 16:49 Globulin 3.2 gm/dl (2.5-4.0) 11/25/24 16:49 Albumin/Globulin Ratio 1.2 (0.9-2) 11/25/24 16:49 11/26/24 11:45 25-OH Vitamin D Total 21.1 ng/ml (30-100) L 11/28/24 07:53 11/25/24 17:00 Impressions Head CTA 11/25/24 16:[address] without contrast CT angiogram of the neck CT angiogram of the brain with contrast Provided History: Neuro deficit Comparison: None Technique: HEAD CT: Using multidetector thin collimation helical acquisition technique, axial, coronal and sagittal CT images from the skull base to the vertex were obtained without intravenous contrast. HEAD and NECK CTA: During rapid bolus intravenous injection of nonionic contrast material, axial images were obtained using thin collimation multidetector helical technique from the base of the neck through the Vertex of vertex of the head. This CT angiogram data was reconstructed at thin intervals with mild overlap. 3D reconstructions were obtained. The axial source images, multiplanar reformations, 3D reconstructions in both maximum intensity projection display and volume rendered models were reviewed. Dose reduction techniques were achieved by using automatic exposure control and/or adjustment of mA and/or kV according to patient size and/or use of iterative reconstruction technique. Findings: Head CT: There is no intracranial hemorrhage, mass effect, or midline shift. Michael/white matter differentiation in both cerebral hemispheres is preserved. Ventricles are proportionate to the cerebral sulci. Head CTA demonstrates loss of flow at the left ICA terminus, as well as the proximal M1 portion of the MCA on the left. There are numerous tiny collateral vessels occupying the expected region of the proximal left MCA, which may be due to a chronic and progressive occlusion. The right MCA is normal. The right intracranial ICA is normal. Notably there is asymmetric loss of enhancement of the left cavernous sinus, suspicious for cavernous sinus thrombosis, and otherwise normal enhancement of the right cavernous sinus. The anterior cerebral arteries and posterior cerebral arteries otherwise appear patent. Grossly patent major dural venous sinuses. Neck CTA demonstrates several areas of beading of the wall of the internal carotid arteries, which are also significantly tortuous. No large vessel occlusion. There also appear to be several scattered arterial collaterals extending along the length of both internal carotid arteries. The vertebral arteries and basilar artery are patent. No mass is noted within the visualized portions of the cervical soft tissues or lung apices. 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 There is also asymmetric loss of enhancement of the left cavernous sinus suspicious for cavernous sinus thrombosis. Significant tortuosity and beaded appearance of both internal carotid arteries in the neck, which is consistent with a JOB SITE SUPERVISOR vasculitis. No large vessel occlusion. Noncontrast head CT is normal, without hemorrhage or significant vascular territory infarct. Consider follow-up MRI. The study was analyzed using artificial intelligence software for large vessel occlusion detection. Findings discussed with Marcelo Calderon by Dr. Mitchell at 6:55 PM, 11/25/2024 Electronically signed by James Mitchell 11-25-2024 7:01 PM Neck CTA 11/25/24 16:[address] without contrast CT angiogram of the neck CT angiogram of the brain with contrast Provided History: Neuro deficit Comparison: None Technique: HEAD CT: Using multidetector thin collimation helical acquisition technique, axial, coronal and sagittal CT images from the skull base to the vertex were obtained without intravenous contrast. HEAD and NECK CTA: During rapid bolus intravenous injection of nonionic contrast material, axial images were obtained using thin collimation multidetector helical technique from the base of the neck through the Vertex of vertex of the head. This CT angiogram data was reconstructed at thin intervals with mild overlap. 3D reconstructions were obtained. The axial source images, multiplanar reformations, 3D reconstructions in both maximum intensity projection display and volume rendered models were reviewed. Dose reduction techniques were achieved by using automatic exposure control and/or adjustment of mA and/or kV according to patient size and/or use of iterative reconstruction technique. Findings: Head CT: There is no intracranial hemorrhage, mass effect, or midline shift. Michael/white matter differentiation in both cerebral hemispheres is preserved. Ventricles are proportionate to the cerebral sulci. Head CTA demonstrates loss of flow at the left ICA terminus, as well as the proximal M1 portion of the MCA on the left. There are numerous tiny collateral vessels occupying the expected region of the proximal left MCA, which may be due to a chronic and progressive occlusion. The right MCA is normal. The right intracranial ICA is normal. Notably there is asymmetric loss of enhancement of the left cavernous sinus, suspicious for cavernous sinus thrombosis, and otherwise normal enhancement of the right cavernous sinus. The anterior cerebral arteries and posterior cerebral arteries otherwise appear patent. Grossly patent major dural venous sinuses. Neck CTA demonstrates several areas of beading of the wall of the internal carotid arteries, which are also significantly tortuous. No large vessel occlusion. There also appear to be several scattered arterial collaterals extending along the length of both internal carotid arteries. The vertebral arteries and basilar artery are patent. No mass is noted within the visualized portions of the cervical soft tissues or lung apices. 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 There is also asymmetric loss of enhancement of the left cavernous sinus suspicious for cavernous sinus thrombosis. Significant tortuosity and beaded appearance of both internal carotid arteries in the neck, which is consistent with a JOB SITE SUPERVISOR vasculitis. No large vessel occlusion. Noncontrast head CT is normal, without hemorrhage or significant vascular territory infarct. Consider follow-up MRI. The study was analyzed using artificial intelligence software for large vessel occlusion detection. Findings discussed with Marcelo Calderon by Dr. Mitchell at 6:55 PM, 11/25/2024 Electronically signed by James Mitchell 11-25-2024 7:01 PM Chest CTA 11/25/24 16:21 CT angiogram with and without IV contrast History: Chest pain COMPARISON: None TECHNIQUE: CT angiography of the chest was performed without IV contrast followed by IV contrast, including 3D post processing CTA image reconstruction. Dose reduction techniques were achieved by using automatic exposure control and/or adjustment of mA and/or kV according to patient size and/or use of iterative reconstruction technique. FINDINGS: Diagnostic quality: Adequate There is no evidence for pulmonary embolism. No aortic dissection. No aortic aneurysm. No significant coronary calcification. The heart is not enlarged. There is no pericardial effusion. There are no abnormally enlarged hilar or mediastinal lymph nodes. The central tracheobronchial tree is clear. Mild streaky bibasilar peripheral atelectasis, otherwise of the lungs are clear. There is no pleural effusion. Limited visualized upper abdomen. No destructive osseous changes are seen. IMPRESSION: No acute thoracic aortic pathology. Mild bibasilar atelectasis. Electronically signed by James Mitchell 11-25-2024 7:[address] 11/27/24 09:55 CT cervical spine wo con CT DOSE: 1750.63 mGy.cm CLINICAL HISTORY: 69 years-old Female with neck pain. Acute neck pain without reported trauma COMPARISON: CT thoracic spine of same day, CTA neck to November 25, 2024 TECHNIQUE: Multiple axial CT images of the cervical spine were obtained without contrast. A dose lowering technique was utilized adhering to the principles of ALARA. FINDINGS: Moderate multilevel and vertebral disc space narrowing, advanced spondylotic spurring with moderate to severe facet arthrosis. There is straightening of the normal cervical lordosis. Multilevel central canal and neural foraminal narrowing is suboptimally evaluated by CT technique. No acute fracture, subluxation or endplate erosion identified. No suspicious bone lesions. The cervical soft tissues appear unremarkable. The visualized lung apices appear clear. IMPRESSION: No acute cervical spine fracture or subluxation. ACT 112: Negative or not required by law. The above report was generated using voice recognition software. It may contain grammatical, syntax or spelling errors. Electronically signed by: Lyle Mckeon M.D. 11/27/2024 11:[address] 11/27/24 09:55 CT thoracic spine wo con CLINICAL HISTORY: scapula/back pain COMPARISON STUDY: 11/25/2024 FINDINGS: There are mild diffuse degenerative changes. No fracture or subluxation. No severe central canal narrowing seen. There is mild bilateral neural foraminal narrowing at T8-9. No paraspinal soft tissue hematoma seen. IMPRESSION: 1. No acute fracture. 2. Mild degenerative changes. ACT 112: Negative or not required by law. Electronically signed by: Pastor Bryant M.D. 11/27/2024 11:43 AM
--- NOTE | 2024-11-28 13:58 | XRay Report ---
XR cervical spine 2 or 3V CLINICAL HISTORY: pain COMPARISON STUDY: 11/02/2007 FINDINGS: There is moderate diffuse degenerative disc disease most advanced at the lower cervical spi ne, progressive. There is minimal retrolisthesis of C5 on C6 and C6 on 7. No fracture seen. IMPRESSION: Progressive degenerative disc disease. ACT 112: Negative or not required by law. Electronically signed by: Pastor Bryant M.D. 11/28/2024 1:57 PM
--- NOTE | 2024-11-28 15:50 | Hospitalist Progress Note ---
Date of Service November 28, 2024 Assessment & Plan (1) Cerebral vasculitis: (2) Left shoulder pain: Plan 69-year-old female PMHx dyslipidemia, depression, and the ED for left-sided back and scapular pain, radiating to neck. Patient was evaluated in the ED the morning of arrival and was discharged home with diagnosis of muscle spasm. Came back to the ED because she was having worsening pain. 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 findings on CTA and inability to perform MRI currently at [facility], patient was considered for transfer however this was declined from an outside hospital. Telestroke consulted in the ED - recommended ESR, CRP, RIC with reflex, lipids, echo, A1c, start aspirin 81 Mg daily, baclofen and lidocaine patch for pain, and neurology consult. MRI head w/w/o contrast, MRI head, MRV head #L sided shoulder and neck pain Head/neck CTA 2/3 - left M1 occlusion which is likely chronic given numerous tiny collaterals which occupy region. Asymmetric loss of enhancement of left cavernous sinus suspicious for cavernous sinus thrombosis. signifcant tortuosity and beaded appearance of both internal carotid arteries in neck, which is consistent with EXPLOSIVES ENGINEER vasculitis. No large vessel occlusion. Head CT 2/3 - negative CXR 2/3 - no acute cardiopulmonary abnormalities identified. Echo 11/26: LVEF 55-60%, normal LV wall thickness, no significant valvular disease. Cervical spine and thoracic spine CT 11/27 - negative for acute fracture or subluxation. Cervical spine XR 11/28 - progressive degenerative disc disease. CBC/BMP stable CRP elevated at 8.58, ESR 47 Lipid panel stable. Urinalysis negative B12 mildly low at 176. - started on PO supplementation, can continue at discharge. Vitamin D level low at 21.1. - started replacement 11/28. Lyme and COVID both negative. RIC, Anti-cardiolipin antibodies, serum cryoglobulins, ANCA, immunoelectrophoresis - pending DAPT x 3 weeks w/ ASA and Plavix then Plavix daily there after. Continue Baclofen Prednisone taper - 40mg to start 11/29. Toradol 10mg IV q6h prn for pain - max of 6 doses. Neurology consulted 11/26 - upon 2nd read of imaging from radiology, Dr. Henderson did not seem to see anything acute or active & all of changes likely consistent with atherosclerosis on left side. Patient also has nothing clinically to suggest cavernous sinus thrombosis or EXPLOSIVES ENGINEER vasculitis. Discussed w/ Dr. Zurita on 11/28 -patient to have MRI brain with/without contrast and MRI cervical spine when able. - orders placed. Patient requested orthopedics be consulted. Dr Collins evaluated patient on 11/28 - - continue NSAIDs, Steroids, and muscle relaxer. Pain is likely secondary to cervical spine problem, possibly arthritis. She is to follow up outpatient Dispo: Admit, med/tele VTE prophylaxis: SCDs Case discussed extensively with Dr. Zurita and Dr. Collins 11/28 Admission and Anticipated Discharge Date Admission Date: November 25, 2024 Subjective Patient seen and examined this afternoon. Patient had a shoulder spasm today. She was given Tylenol and Toradol with some relief. She was pleased that she was evaluated by orthopedics. Aside from her spasming pain in her shoulder region, she denied any further complaints. Physical Exam Constitutional: WD/WN, vitals as above Eyes: PERRL, conjunctivae normal, anicteric sclerae Respiratory: breathing unlabored Cardiovascular: well perfused Psychiatric: A+Ox3, euthymic affect Results & Data Results & Data Vital Signs (Past 12 Hours) Vital Signs Temp Pulse Resp BP Pulse Ox O2 Del Method 11/28/24 11:20 36.7 C 72 18 153/99 H 92 Room Air 11/28/24 07:38 36.6 C 75 18 150/77 H 96 Room Air PG Care Time/CCT Total # of Minutes Spent Total Time Spent with Patient: Total time spent is greater than 50% in coordination of care (as documented) at patient's floor/unit and/or counseling patient: Coding Level of Care Code 38991 SUB INP/OBS CARE 3/50MIN Diagnoses Cerebral vasculitis I67.7 Left shoulder pain M25.512
[2024-11-28] MEDS: GADOBUTROL 65ML VIAL IV ONE (16:26)
--- NOTE | 2024-11-28 16:29 | Magnetic Resonance Report ---
Technique: Sagittal and axial T1 and T2-weighted magnetic resonance images were obtained of the cervical spine without gadolinium contrast. Findings: The cervical vertebrae are in normal alignment with no listhesis seen. No fracture is identified. There are suspected small hemangiomas at the C3 and T3 vertebral bodies with characteristic increased T1 and increased T2 signal intensity. No other focal osseous lesion is noted. The overall bone marrow signal intensity of the vertebrae is unremarkable. There is disc space narrowing and mild degenerative end plate change from C3-4 through C6-7 There is no definite sign of infection. There is no sign of acute ligamentous injury. The spinal cord is of normal signal intensity with no focal lesion seen. The cerebellar tonsils are normally situated. At C2-C3, no disc herniation is present. There is no spinal stenosis or nerve root compression At C3-C4, there is spinal stenosis with spinal cord deformity due to a disc bulge. There is left greater than right neural foramen narrowing that may affect the exiting C4 nerve roots At C4-C5, there is spinal stenosis with compression of the spinal cord due to a disc bulge and a small right paracentral disc protrusion. There is bilateral neural foramen narrowing that may affect the exiting C5 nerve roots At C5-C6, there is spinal stenosis with compression of the spinal cord due to a disc bulge and a broad-based right paracentral disc protrusion. There is left greater than right neural foramen narrowing that may affect the exiting C6 nerve roots At C6-C7, there is spinal stenosis with spinal cord deformity due to a disc bulge and a right paracentral disc protrusion. There is bilateral neural foramen narrowing that may affect the exiting C7 nerve roots At C7-T1, no disc herniation is present. There is no spinal stenosis or nerve root compression There are disc bulges in the visualized thoracic spine, without clear spinal cord deformity Impression: 1. Spinal stenosis from C3-4 through C6-7 with spinal cord deformity due to disc bulges and disc protrusions. No cord edema or myelomalacia is seen 2. Bilateral neural foramen narrowing from C3-4 through C6-7, which may affect the exiting nerve roots Electronically signed by Marcelo Humphrey 11-28-2024 4:28 PM
--- NOTE | 2024-11-28 17:01 | Magnetic Resonance Report ---
Clinical History: Back spasms Technique: Multiple T1 and T2-weighted magnetic resonance images were obtained of the brain both before and after the administration of 8 cc of Gadavist intravenous gadolinium contrast Comparison is made to the CTA of the brain dated 11/25/2024 Findings: Some sequences are limited by motion artifact There is no sign of acute or old infarction with normal-appearing diffusion weighted images. No definite focus of demyelination is seen. No mass lesion or other area of abnormal enhancement is identified. There is no intracranial hemorrhage or other fluid collection. No midline shift or other form of herniation is seen. There is no hydrocephalus. The pituitary gland appears normal. Again seen is narrowing and possible occlusion of the cavernous segment of the left internal carotid artery. There is no clear evidence of cavernous sinus thrombosis on this examination. The orbits and paranasal sinuses appear normal. There is nasal septum deviation. The mastoid air cells appear clear Impression: 1. No sign of infarction or mass lesion 2. Unchanged narrowing and possible occlusion of the cavernous segment of the distal left ICA Electronically signed by Marcelo Humphrey 11-28-2024 5:01 PM
[2024-11-29 06:04] VITALS: TEMP 97.7
[2024-11-29 07:52] VITALS: BP 132/84; RESP 16; O2SAT 92
--- NOTE | 2024-11-29 09:49 | Orthopedic Progress Note ---
Date of Service November 29, 2024 Assessment & Plan (1) Cervical spinal stenosis: Plan: PT/OT Soft cervical collar use Pain control with p.o. medications per medicine service Referral to see Dr. Marx in [place] sent to teams Orthopedically patient is stable (2) Cervical disc disorder: Admission and Anticipated Discharge Date Admission Date: November 25, 2024 Subjective 69-year-old female seen for follow-up of cervical pain that cause pain with range of motion of her neck and left shoulder. Patient states that her pain is much better today and she is able to rotate her neck from [id number] without significant discomfort. She states that most of her issue seems to lie in the left sided cervical and shoulder musculature. I reviewed the results of her MRI study with her. 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 Zurita and had a complete evaluation. She states that she would like to see a spinal surgeon in [place]. Currently she denies chest pain, shortness of breath, fever, chills, sweats, nausea, vomiting, diarrhea, difficulty voiding or numbness or tingling in either upper extremity. Review of Systems Review of Systems: All systems reviewed & are unremarkable except as noted in Subjective Physical Exam Physical Exam: Neck: Patient has some mild tenderness to palpation over the cervical spine and left-sided paraspinal musculature. She does have palpable spasm and tenderness over the superior trapezius on the left side. She has some slight referred pain to the area with rotation of her head to the right but no pain with rotation to the left. She has no pain with neck flexion or extension or with resisted rotation. Shoulders: Patient is able to easily forward flex and AB duct to 90 degrees and has no weakness with applied resistance. She does have some referred pain to the left superior trapezius with empty can testing and Tunica's testing at 0 an d 30 degrees on the left side. She has no pain with abducted internal or external rotation. Strength is 5 out of 5. She is neurovascularly intact. Results & Data Vital Signs (Past 12 Hours) Vital Signs Temp Pulse Resp BP Pulse Ox O2 Del Method 11/29/24 07:51 36.5 C 64 16 132/84 92 Room Air Diagnostic Findings Laboratory Results WBC 5.51 K/ul (4.8-10.8) 11/27/24 06: RBC 4.65 M/uL (4.20-5.40) 11/27/24 06:26 Hgb 12.8 g/dl (12.0-16.0) 11/27/24 06: POC Hgb 14.6 g/dl (12.0-16.0) 11/25/24 16:56 Hct 39.2 % (37.0-47.0) 11/27/24 06: POC Hct 43 % (37-47) 11/25/24 16:56 MCV 84.3 fL (80.0-100.0) 11/27/24 06: MCH 27.5 pg (25.0-34.0) 11/27/24 06: MCHC 32.7 g/dL (32.0-36.0) 11/27/24 06: RDW Std Deviation 38.6 fL (36.4-46.3) 11/27/24 06: RDW Coeff of Kike 12.6 % (11.5-14.5) 11/27/24 06: Plt Count 231 K/uL (130-400) 11/27/24 06: MPV 10.7 fL (9.4-12.4) 11/27/24 06:26 Immature Gran % (Auto) 0.5 % 11/25/24 16:49 Neut % (Auto) 77.5 % 11/25/24 16:49 Lymph % (Auto) 11.5 % 11/25/24 16:49 [place] % (Auto) 9.3 % 11/25/24 16:49 Eos % (Auto) 0.9 % 11/25/24 16:49 Baso % (Auto) 0.3 % 11/25/24 16:49 Neut # (Auto) 6.09 K/uL (1.40-6.50) 11/25/24 16:49 Lymph # (Auto) 0.90 K/uL (1.20-3.40) L 11/25/24 16:49 [place] # (Auto) 0.73 K/uL (0.11-0.59) H 11/25/24 16:49 Eos # (Auto) 0.07 K/uL (0.00-0.50) 11/25/24 16:49 Baso # (Auto) 0.02 K/uL (0.00-0.20) 11/25/24 16:49 Immature Gran # (Auto) 0.04 K/uL (0.01-0.20) 11/25/24 16:49 ESR 47 mm/hr (0-30) H 11/25/24 16:49 PT 10.3 Seconds (9.0-12.0) 11/25/24 16:49 INR 0.9 (0.9-1.1) 11/25/24 16:49 APTT 28 Seconds (21-31) 11/25/24 16:49 PTT Ratio 1.0 11/25/24 16:49 POC Sodium 140 mmol/L (135-144) 11/25/24 16:56 Sodium 143 mmol/L (136-145) 11/28/24 07:53 POC Potassium 4.0 mmol/L (3.3-5.0) 11/25/24 16:56 Potassium 4.0 mmol/L (3.5-5.1) 11/28/24 07:53 POC Chloride 104 mmol/L (101-112) 11/25/24 16:56 Chloride 111 mmol/L (98-107) H 11/28/24 07:53 Carbon Dioxide 27 mmol/L (21-32) 11/28/24 07:53 POC Total CO2 25 mmol/L (24-31) 11/25/24 16:56 Anion Gap 5 (3-11) 11/28/24 07:53 POC Anion Gap 16.0 mmol/L (16-25) 11/25/24 16:56 POC BUN 13 mg/dl (7-18) 11/25/24 16:56 BUN 22 mg/dl (6-23) 11/28/24 07:53 Creatinine 0.80 mg/dl (0.6-1.2) 11/28/24 07:53 POC Creatinine 0.9 mg/dl (0.6-1.3) 11/25/24 16:56 Est Cr Clr Drug Dosing 66.2 ml/min 11/28/24 07:53 eGFR 79.22 11/28/24 07:53 BUN/Creatinine Ratio 27.5 (10-20) H 11/28/24 07:53 Glucose 88 mg/dl (70-99(Fasting)) 11/28/24 07:53 POC Glucose (other) 118 mg/dl (70-99) H 11/25/24 16:56 Estimat Average Glucose 126 mg/dl 11/26/24 05:34 Hemoglobin A1c 6.0 % (4.5-5.6) H 11/26/24 05:34 Calcium 9.2 mg/dl (8.6-10.3) 11/28/24 07:53 POC Ioniz Calcium Hector 1.21 mmol/l (1.12-1.32) 11/25/24 16:56 Magnesium 2.3 mg/dl (1.7-2.4) 11/25/24 16:49 Total Bilirubin 0.7 mg/dl (0.2-1.0) 11/25/24 16:49 AST 15 U/L (13-39) 11/25/24 16:49 ALT 14 U/L (7-52) 11/25/24 16:49 Alkaline Phosphatase 56 U/L (34-104) 11/25/24 16:49 Total Creatine Kinase 78 U/L (26-192) 11/25/24 16:49 Troponin I High Sens 7.2 pg/ml (0-14) 11/25/24 16:49 C-Reactive Protein 8.58 mg/dl (0-0.5) H 11/25/24 16:49 Total Protein 7.1 gm/dl (6.0-8.3) 11/25/24 16:49 Albumin 3.9 gm/dl (3.4-5.0) 11/25/24 16:49 Globulin 3.2 gm/dl (2.5-4.0) 11/25/24 16:49 Albumin/Globulin Ratio 1.2 (0.9-2) 11/25/24 16:49 Triglycerides 71 mg/dl (0-150) 11/26/24 05:34 Cholesterol 137 mg/dl (0-200) 11/26/24 05:34 LDL Cholesterol, Calc 78 mg/dl 11/26/24 05:34 VLDL Cholesterol, Calc 14 mg/dl (0-30) 11/26/24 05:34 HDL Cholesterol 45 mg/dl 11/26/24 05:34 Cholesterol/HDL Ratio 3.0 (0-5) 11/26/24 05:34 Lipase 9 U/L (11-82) L 11/25/24 16:49 Vitamin B12 176 pg/ml (180-914) L 11/26/24 11:45 25-OH Vitamin D Total 21.1 ng/ml (30-100) L 11/28/24 07:53 Urine Color Yellow 11/25/24 19:14 Urine Appearance Clear (Clear) 11/25/24 19:14 Urine pH 6.5 (4.5-7.5) 11/25/24 19:14 Ur Specific [place] 1.043 (1.000-1.030) H 11/25/24 19:14 Urine Protein Negative (Negative) 11/25/24 19:14 Urine Glucose (UA) Negative (Negative) 11/25/24 19:14 Urine Ketones Negative (Negative) 11/25/24 19:14 Urine Blood Negative (Negative) 11/25/24 19:14 Urine Nitrite Negative (Negative) 11/25/24 19:14 Urine Bilirubin Negative (Negative) 11/25/24 19:14 Urine Urobilinogen Negative (Negative) 11/25/24 19:14 Ur Leukocyte Esterase Negative (Negative) 11/25/24 19:14 Anti-Cardiolipin IgG Ab <2.0 GPL-U/mL 11/26/24 11:45 Anti-Cardiolipin IgA Ab 12.1 APL-U/mL 11/26/24 11:45 Anti-Cardiolipin IgM Ab 28.9 MPL-U/mL H 11/26/24 11:45 Lyme Disease Screen Negative (Negative) 11/25/24 16:49 SARS-CoV-2 (PCR) NEGATIVE (Negative) 11/25/24 17:00 Influenza Type A (PCR) Negative (Neg) 11/25/24 17:00 Influenza Type B (PCR) Negative (Neg) 11/25/24 17:00 RSV (RT-PCR) Negative (Neg) 11/25/24 17:00 Impressions Head CTA 11/25/24 16:[address] without contrast CT angiogram of the neck CT angiogram of the brain with contrast Provided History: Neuro deficit Comparison: None Technique: HEAD CT: Using multidetector thin collimation helical acquisition technique, axial, coronal and sagittal CT images from the skull base to the vertex were obtained without intravenous contrast. HEAD and NECK CTA: During rapid bolus intravenous injection of nonionic contrast material, axial images were obtained using thin collimation multidetector helical technique from the base of the neck through the Vertex of vertex of the head. This CT angiogram data was reconstructed at thin intervals with mild overlap. 3D reconstructions were obtained. The axial source images, multiplanar reformations, 3D reconstructions in both maximum intensity projection display and volume rendered models were reviewed. Dose reduction techniques were achieved by using automatic exposure control and/or adjustment of mA and/or kV according to patient size and/or use of iterative reconstruction technique. Findings: Head CT: There is no intracranial hemorrhage, mass effect, or midline shift. Michael/white matter differentiation in both cerebral hemispheres is preserved. Ventricles are proportionate to the cerebral sulci. Head CTA demonstrates loss of flow at the left ICA terminus, as well as the proximal M1 portion of the MCA on the left. There are numerous tiny collateral vessels occupying the expected region of the proximal left MCA, which may be due to a chronic and progressive occlusion. The right MCA is normal. The right intracranial ICA is normal. Notably there is asymmetric loss of enhancement of the left cavernous sinus, suspicious for cavernous sinus thrombosis, and otherwise normal enhancement of the right cavernous sinus. The anterior cerebral arteries and posterior cerebral arteries otherwise appear patent. Grossly patent major dural venous sinuses. Neck CTA demonstrates several areas of beading of the wall of the internal carotid arteries, which are also significantly tortuous. No large vessel occlusion. There also appear to be several scattered arterial collaterals extending along the length of both internal carotid arteries. The vertebral arteries and basilar artery are patent. No mass is noted within the visualized portions of the cervical soft tissues or lung apices. 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 There is also asymmetric loss of enhancement of the left cavernous sinus suspicious for cavernous sinus thrombosis. 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 No large vessel occlusion. Noncontrast head CT is normal, without hemorrhage or significant vascular territory infarct. Consider follow-up MRI. The study was analyzed using artificial intelligence software for large vessel occlusion detection. Findings discussed with Marcelo Calderon by Dr. Mitchell at 6:55 PM, 11/25/2024 Electronically signed by James Mitchell 11-25-2024 7:01 PM Neck CTA 11/25/24 16:[address] without contrast CT angiogram of the neck CT angiogram of the brain with contrast Provided History: Neuro deficit Comparison: None Technique: HEAD CT: Using multidetector thin collimation helical acquisition technique, axial, coronal and sagittal CT images from the skull base to the vertex were obtained without intravenous contrast. HEAD and NECK CTA: During rapid bolus intravenous injection of nonionic contrast material, axial images were obtained using thin collimation multidetector helical technique from the base of the neck through the Vertex of vertex of the head. This CT angiogram data was reconstructed at thin intervals with mild overlap. 3D reconstructions were obtained. The axial source images, multiplanar reformations, 3D reconstructions in both maximum intensity projection display and volume rendered models were reviewed. Dose reduction techniques were achieved by using automatic exposure control and/or adjustment of mA and/or kV according to patient size and/or use of iterative reconstruction technique. Findings: Head CT: There is no intracranial hemorrhage, mass effect, or midline shift. Michael/white matter differentiation in both cerebral hemispheres is preserved. Ventricles are proportionate to the cerebral sulci. Head CTA demonstrates loss of flow at the left ICA terminus, as well as the proximal M1 portion of the MCA on the left. There are numerous tiny collateral vessels occupying the expected region of the proximal left MCA, which may be due to a chronic and progressive occlusion. The right MCA is normal. The right intracranial ICA is normal. Notably there is asymmetric loss of enhancement of the left cavernous sinus, suspicious for cavernous sinus thrombosis, and otherwise normal enhancement of the right cavernous sinus. The anterior cerebral arteries and posterior cerebral arteries otherwise appear patent. Grossly patent major dural venous sinuses. Neck CTA demonstrates several areas of beading of the wall of the internal carotid arteries, which are also significantly tortuous. No large vessel occlusion. There also appear to be several scattered arterial collaterals extending along the length of both internal carotid arteries. The vertebral arteries and basilar artery are patent. No mass is noted within the visualized portions of the cervical soft tissues or lung apices. 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 There is also asymmetric loss of enhancement of the left cavernous sinus suspicious for cavernous sinus thrombosis. 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 No large vessel occlusion. Noncontrast head CT is normal, without hemorrhage or significant vascular territory infarct. Consider follow-up MRI. The study was analyzed using artificial intelligence software for large vessel occlusion detection. Findings discussed with Marcelo Calderon by Dr. Mitchell at 6:55 PM, 11/25/2024 Electronically signed by James Mitchell 11-25-2024 7:01 PM Chest CTA 11/25/24 16:21 CT angiogram with and without IV contrast History: Chest pain COMPARISON: None TECHNIQUE: CT angiography of the chest was performed without IV contrast followed by IV contrast, including 3D post processing CTA image reconstruction. Dose reduction techniques were achieved by using automatic exposure control and/or adjustment of mA and/or kV according to patient size and/or use of iterative reconstruction technique. FINDINGS: Diagnostic quality: Adequate There is no evidence for pulmonary embolism. No aortic dissection. No aortic aneurysm. No significant coronary calcification. The heart is not enlarged. There is no pericardial effusion. There are no abnormally enlarged hilar or mediastinal lymph nodes. The central tracheobronchial tree is clear. Mild streaky bibasilar peripheral atelectasis, otherwise of the lungs are clear. There is no pleural effusion. Limited visualized upper abdomen. No destructive osseous changes are seen. IMPRESSION: No acute thoracic aortic pathology. Mild bibasilar atelectasis. Electronically signed by James Mitchell 11-25-2024 7:[address] 11/27/24 09:55 CT cervical spine wo con CT DOSE: 1750.63 mGy.cm CLINICAL HISTORY: 69 years-old Female with neck pain. Acute neck pain without reported trauma COMPARISON: CT thoracic spine of same day, CTA neck to November 25, 2024 TECHNIQUE: Multiple axial CT images of the cervical spine were obtained without contrast. A dose lowering technique was utilized adhering to the principles of ALARA. FINDINGS: Moderate multilevel and vertebral disc space narrowing, advanced spondylotic spurring with moderate to severe facet arthrosis. There is straightening of the normal cervical lordosis. Multilevel central canal and neural foraminal narrowing is suboptimally evaluated by CT technique. No acute fracture, subluxation or endplate erosion identified. No suspicious bone lesions. The cervical soft tissues appear unremarkable. The visualized lung apices appear clear. IMPRESSION: No acute cervical spine fracture or subluxation. ACT 112: Negative or not required by law. The above report was generated using voice recognition software. It may contain grammatical, syntax or spelling errors. Electronically signed by: Lyle Mckeon M.D. 11/27/2024 11:[address] 11/27/24 09:55 CT thoracic spine wo con CLINICAL HISTORY: scapula/back pain COMPARISON STUDY: 11/25/2024 FINDINGS: There are mild diffuse degenerative changes. No fracture or subluxation. No severe central canal narrowing seen. There is mild bilateral neural foraminal narrowing at T8-9. No paraspinal soft tissue hematoma seen. IMPRESSION: 1. No acute fracture. 2. Mild degenerative changes. ACT 112: Negative or not required by law. Electronically signed by: Pastor Bryant M.D. 11/27/2024 11:43 AM Brain MRI 11/28/24 11:10 Clinical History: Back spasms Technique: Multiple T1 and T2-weighted magnetic resonance images were obtained of the brain both before and after the administration of 8 cc of Gadavist intravenous gadolinium contrast Comparison is made to the CTA of the brain dated 11/25/2024 Findings: Some sequences are limited by motion artifact There is no sign of acute or old infarction with normal-appearing diffusion weighted images. No definite focus of demyelination is seen. No mass lesion or other area of abnormal enhancement is identified. There is no intracranial hemorrhage or other fluid collection. No midline shift or other form of herniation is seen. There is no hydrocephalus. The pituitary gland appears normal. Again seen is narrowing and possible occlusion of the cavernous segment of the left internal carotid artery. There is no clear evidence of cavernous sinus thrombosis on this examination. The orbits and paranasal sinuses appear normal. There is nasal septum deviation. The mastoid air cells appear clear Impression: 1. No sign of infarction or mass lesion 2. Unchanged narrowing and possible occlusion of the cavernous segment of the distal left ICA Electronically signed by Marcelo Humphrey 11-28-2024 5:01 PM Cervical Spine MRI 11/28/24 11:16 Technique: Sagittal and axial T1 and T2-weighted magnetic resonance images were obtained of the cervical spine without gadolinium contrast. Findings: The cervical vertebrae are in normal alignment with no listhesis seen. No fracture is identified. There are suspected small hemangiomas at the C3 and T3 vertebral bodies with characteristic increased T1 and increased T2 signal intensity. No other focal osseous lesion is noted. The overall bone marrow signal intensity of the vertebrae is unremarkable. There is disc space narrowing and mild degenerative end plate change from C3-4 through C6-7 There is no definite sign of infection. There is no sign of acute ligamentous injury. The spinal cord is of normal signal intensity with no focal lesion seen. The cerebellar tonsils are normally situated. At C2-C3, no disc herniation is present. There is no spinal stenosis or nerve root compression At C3-C4, there is spinal stenosis with spinal cord deformity due to a disc bulge. There is left greater than right neural foramen narrowing that may affect the exiting C4 nerve roots At C4-C5, there is spinal stenosis with compression of the spinal cord due to a disc bulge and a small right paracentral disc protrusion. There is bilateral neural foramen narrowing that may affect the exiting C5 nerve roots At C5-C6, there is spinal stenosis with compression of the spinal cord due to a disc bulge and a broad-based right paracentral disc protrusion. There is left greater than right neural foramen narrowing that may affect the exiting C6 nerve roots At C6-C7, there is spinal stenosis with spinal cord deformity due to a disc bulge and a right paracentral disc protrusion. There is bilateral neural foramen narrowing that may affect the exiting C7 nerve roots At C7-T1, no disc herniation is present. There is no spinal stenosis or nerve root compression There are disc bulges in the visualized thoracic spine, without clear spinal cord deformity Impression: 1. Spinal stenosis from C3-4 through C6-7 with spinal cord deformity due to disc bulges and disc protrusions. No cord edema or myelomalacia is seen 2. Bilateral neural foramen narrowing from C3-4 through C6-7, which may affect the exiting nerve roots Electronically signed by Marcelo Humphrey 11-28-2024 4:28 PM Cervical Spine X-Ray 11/28/24 12:51 XR cervical spine 2 or 3V CLINICAL HISTORY: pain COMPARISON STUDY: 11/02/2007 FINDINGS: There is moderate diffuse degenerative disc disease most advanced at the lower cervical spine, progressive. There is minimal retrolisthesis of C5 on C6 and C6 on 7. No fracture seen. IMPRESSION: Progressive degenerative disc disease. ACT 112: Negative or not required by law. Electronically signed by: Pastor Bryant M.D. 11/28/2024 1:57 PM
[2024-11-29] MEDS: CHOLECALCIFEROL 125 MCG (5,000 UNITS) TAB PO SCH (10:02)
[2024-11-29] MEDS: predniSONE 20 MG TAB PO SCH (10:03)
--- NOTE | 2024-11-29 10:34 | Neurology Progress Note ---
Date of Service November 29, 2024 Assessment & Plan (1) Cervical spinal stenosis: (2) Left shoulder pain: (3) Abnormal computed tomography angiography (CTA) of neck: (4) Carotid stenosis: Plan Patient presented with left posterior shoulder/scapular pain and spasms radiating into the left neck. She is somewhat improved although had a spasm this morning. It may be that the origin of this spasm and pain comes from the cervical spine and shoulder. 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 Neurologic examination is entirely within normal limits with no focal findings, meningeal signs, or encephalopathy. She has no cranial nerve deficits or upper motor neuron findings. MRI of the brain showed some very mild old small vessel ischemic disease but no significant findings. MRI of the cervical spine showed diffuse spinal stenosis of a moderate to severe nature C3-C7 without cord involvement/edema I suspect upper cervical radiculopathy into the left shoulder/scapular area. 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 After reviewing CT angiography with Dr. Henderson there does not seem to be anything acute or active and all of the changes are likely consistent with old atherosclerosis on the left side. It is chronic as there are collaterals already formed. The patient clinically has nothing to suggest a cavernous sinus thrombosis or [employer] [place] [place] vasculitis (no headache, altered mental status, meningeal signs or any cranial nerve deficit). She does have an elevated ESR and CRP. Although she does not seem to have an obvious infection, she could have an inflammatory condition. The patient has a low vitamin D at 21 and has a low vitamin B12 at 167 Recommendations: 1. Continue gentle physical therapy/massage but no cervical spine manipulation. 2. Awaiting laboratory studies (which included RIC 12, B12, anticardiolipin an tibodies, serum cryoglobulins, ANCA, immunoelectrophoresis). Also add vitamin D 3. Continue dual antiplatelet therapy with 81 mg aspirin and 75 mg clopidogrel daily for a total of 3 weeks, then discontinue aspirin and remain on clopidogrel alone. 4. Can continue baclofen 10 mg 3 times a day, if helpful. 6. Continue prednisone taper over the next week. 7. Continue vitamin D and B12 replacement 8. Agree with consult for cervical spinal stenosis with Dr. Marx at [facility] 9. Follow-up with neurology as an outpatient, if desired, in 2 to 3 months with neurology PA Overall, I spent a total of 50 minutes with this case including review of records, review of CT and MRI films, direct evaluation the patient at bedside, report generation, and discussion of the case with the patient and RN at bedside, and Zandra Rodriguez PA-C, including differential diagnosis and treatment options. Admission and Anticipated Discharge Date Admission Date: November 25, 2024 Subjective Patient is feeling much better today without spasm or significant pain. She is wearing a soft cervical collar. Nursing reports no new issues or problems. MRI of the brain with and without contrast revealed no acute stroke, cavernous sinus thrombosis, or vascular anomalies, except the distal left internal carotid artery was narrow (as before). I reviewed these films with the patient. . MRI of the cervical spine showed multilevel moderate to significant spinal stenosis from disc and bone at C3-C7 levels. The cord showed no evidence of edema and there was no kinking of the cord. There was diffuse neuroforaminal narrowing from C3-C7 bilaterally as well. I reviewed these films with the patient Blood pressure is 132/84 and she is afebrile. Results & Data Vital Signs (Past 12 Hours) Vital Signs Temp Pulse Resp BP Pulse Ox O2 Del Method 11/29/24 07:51 36.5 C 64 16 132/84 92 Room Air PG Care Time/CCT Total # of Minutes Spent Total Time Spent with Patient: Total time spent is greater than 50% in coordination of care (as documented) at patient's floor/unit and/or counseling patient: Coding Level of Care Code 62755 SUB INP/OBS CARE 3/50MIN Diagnoses Cervical spinal stenosis M48.02 Left shoulder pain M25.512 Abnormal computed tomography angiography (CTA) of neck R93.89 Carotid stenosis I65.29 Time Spent (min) 50
--- NOTE | 2024-11-29 10:54 | Discharge Summary ---
Discharge Summary Date of Service November 29, 2024 Principal Dx & Hospital Course #1 = Principal Diagnosis (1) Cerebral vasculitis: (2) Left shoulder pain: Plan 69-year-old female PMHx dyslipidemia, depression, and the ED for left-sided back and scapular pain, radiating to neck. Patient was evaluated in the ED the morning of arrival and was discharged home with diagnosis of muscle spasm. Came back to the ED because she was having worsening pain. 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 findings on CTA and inability to perform MRI currently at [facility], patient was considered for transfer however this was declined from an outside hospital. Telestroke consulted in the ED - recommended ESR, CRP, RIC with reflex, lipids, echo, A1c, start aspirin 81 Mg daily, baclofen and lidocaine patch for pain, and neurology consult. MRI head w/w/o contrast, MRI head, MRV head #L sided shoulder and neck pain Head/neck CTA 2/3 - left M1 occlusion which is likely chronic given numerous tiny collaterals which occupy region. Asymmetric loss of enhancement of left cavernous sinus suspicious for cavernous sinus thrombosis. signifcant tortuosity and beaded appearance of both internal carotid arteries in neck, which is consistent with [employer] vasculitis. No large vessel occlusion. 2nd read from Dr. Henderson did not seem to see anything acute/active. All changes likely consistent w/ atherosclerosis on left side. Head CT 2/3 - negative CXR 2/3 - no acute cardiopulmonary abnormalities identified. Echo 2/: LVEF 55-60%, normal LV wall thickness, no significant valvular disease. Cervical spine and thoracic spine CT 2/ - negative for acute fracture or subluxation. Cervical spine XR 2/6 - progressive degenerative disc disease. Brain MRI 2/6 - no sign of infarction/mass. unchanged narrowing & possible occlusion of cavernous segment of distal left ICA Cerivcal spine MRI 2/6 - spinal stenosis from C3-C4 through C6-C7 w/ spinal cord deformity due to disc bulges & disc protrusions. no cord edema/myelomalacia seen. b/l neural foramen narrowing from C3-C4 through C6-C7 which may affect exiting nerve roots. CBC/BMP stable CRP elevated at 8.58, ESR 47 Lipid panel stable. Urinalysis negative B12 mildly low at 176. - started on PO supplementation, can continue at discharge. Vitamin D level low at 21.1. - started replacement 11/28. - continue on discharge Lyme and COVID both negative. RIC, Anti-cardiolipin antibodies, serum cryoglobulins, ANCA, immunoelectrophoresis - pending DAPT x 3 weeks w/ ASA and Plavix then Plavix daily there after. Continue Baclofen Prednisone taper - 40mg to start 11/29. Discussed w/ Dr. Zurita 11/29 - patient safe to be discharge from neuro standpoint. Consider follow up in 2-3 months w/ neurology PA if patient wishes. Discussed w/ Dr. Collins 11/29 - [facility] Patient established with a new PCP prior to discharge. Appointment made and patient made aware via discharge instructions. Admission HPI Per Admitting Provider 69-year-old female PMHx dyslipidemia, depression, and the ED for left-sided back and scapular pain, radiating to neck. Patient was evaluated in the ED the morning of arrival and was discharged home with diagnosis of muscle spasm. Came back to the ED because she was having worsening pain. 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 States that she has chronic/tingling in her right arm from prior bicep trauma, but has not had new numbness or tingling. No weakness to any of the extremities. Patient denies having this happen before. No trauma or injury that patient can recall. Does have knee pain/abnormalities per patient. She believes that these occurred after the COVID-vaccine was received and has been an ongoing issue for the past 3 years. Otherwise denies additional joint problems or history of rheumatologic diagnoses in herself or family. Denying chest pain, shortness of breath, ulcers in mouth, frothy urine, or additional aches/pains. Normally utilizes etodolac and as needed Tylenol for pain, but has not been using the NSAID for the past week. ED workup reveals grossly WNL CBC, ESR 47, grossly WNL CMP with exception of glucose 117, and negative UA. CXR with LLL atelectatic bands, R lower zone cardiophrenic nodule atelectasis, no acute findings. Head/neck CTA without M1 occlusion (likely chronic 2/2 collaterals), asymmetric loss of enhancement of L cavernous sinus (suspicious for cavernous sinus thrombosis), significant tortuosity and beaded appearance of internal carotid arteries and neck (consistent with [employer] vasculit is). Head CT normal, consider follow-up MRI. Please see Dr. Roberts's attestation for adjustments/additions to treatment plan. Discharge Exam Constitutional WD/WN, vitals as above Eyes PERRL, conjunctivae normal, anicteric sclerae Respiratory breathing unlabored Cardiovascular well perfused Psychiatric A+Ox3, euthymic affect Discharge Plan Discharge Items Patient Disposition: Home - Self-Care Reason For Visit: CEREBRAL VASCULITIS Discharge Diagnosis: Cervical Stenosis Condition on Discharge: Good Activity: Resume your previous activity Non-emergency contact: Primary Care Provider and Surgeon Call non-emergency contact if: you have any medication questions, your symptoms worsen, your pain is not controlled and your pain is worsening Follow-up/Referrals: Sergio Lopez CRNP [Nurse Practitioner] - 12/05/24 9:30 am Diet: Regular Addtl Attending Provider Instructions: Ms. Sanderson, You were recently hospitalized for left scapula pain. You underwent a workup and were evaluated by the neurologist and the orthopedic surgeon. Please see recommendations below regarding your discharge. 1. Please take Baclofen 10mg three times daily. Your next dose at home will be this evening, 11/29. 2. Please take Aspirin 81mg and Plavix 75mg once daily. Your first dose at home will start tomorrow, 11/30. 3. Please take the prednisone taper as prescribed. Your next dose will be 11/30. 4. You were found to have low vitamin D and Vitamin B12 levels while inpatient - these supplements have been sent to your pharmacy. Please take these once daily and follow up with your new PCP to recheck labs. Your first dose at home will be 11/30. 5. Please use ibuprofen or tylenol for breakthrough pain. 6. We have arranged a follow up with a new PCP for you on 12/05/2024 at 9:30am. The office phone number is above. 7. Neurology has recommended a follow up if you prefer in 2-3 months. Please discuss this with your PCP at your upcoming office visit. 8. Orthopedics has referred you to [facility] [place] for further care of your pain. Their office should be in contact with you regarding an appointment. If you develop any worsening pain, weakness, chest pain, or shortness of breath please report back to the ER for further care. Sincerely, Zandra Keita PA-C Pending Studies at Discharge: Yes Studies:: labs recommended by neurology Stand-Alone Forms: My [facility], Smoking Cessation Medications and DC Order Prescriptions: New cyanocobalamin (vitamin B-12) [Vitamin B-12] 100 mcg Tablet 100 mcg PO QAM Qty: 30 0RF clopidogrel 75 mg Tablet 75 mg PO QAM Qty: 30 0RF aspirin 81 mg Tablet,Delayed Release (Dr/Ec) 81 mg PO DAILY Qty: 30 0RF baclofen 10 mg Tablet 10 mg PO TID Qty: 60 0RF cholecalciferol (vitamin D3) 125 mcg (5,000 unit) Tablet 125 mcg PO QAM Qty: 30 0RF prednisone 10 mg tablet 10 mg PO DIRECTED Qty: 26 0RF Rx Instructions: Please take 4 tablets by mouth for 2 days followed by 3 tablets by mouth for 3 days followed by 2 tablets by mouth for 3 days followed by 1 tablet by mouth for 3 days. Continued acetaminophen [Tylenol 8 Hour] 650 mg tablet extended release 650 mg PO PRN Rx Instructions: otc unable to verify etodolac 400 mg tablet 400 mg PO UD Rx Instructions: 400 mg po bid. last filled 06/20 90 day supply Discontinued cyclobenzaprine 10 mg tablet 10 mg PO BID PRN (Reason: muscle spasm) Qty: 20 0RF Discharge Orders: Discharge Order (Routine); Ordered 11/29/24 Ordered By: Zandra Crews/Other Patient Handouts: Prediabetes, 5 Steps for Eating Healthier Admission Data Admit Date/Time: 11/25/24 22:47 Attending Provider: Horacio Lazcano Admit Provider: Carla Roberts Primary Care Provider: Miguel Evans III Other Providers: Carla Roberts; Savage Connor; Александр Zurita; Cintia Rausch; Jessica Peace; Quiana Boyd; Ivan Snyder; Ian Montiel; Rosanna Snowden; Naomi Csaillas; Annabella Osuna; Donaldo Breaux; Joslyn Brooks; Sixto Gomez; Maryann Humphries; Navin Emery; Harris Roberts; Massiel Kimbrough; Hakeem Sheaprd; Meg Benitez; Savage Mir; Lyle Noriega; Dai Nielsen; Tisha Medina; Nura Romero; Matias Slater; Lupe Guerrero Other Interventions: Discharge Summary Assessment (RN) Last Done: 11/29/24 11:03 Hospital Stay Data Consultations 11/25/24 22:12 ED Decision to Admit Stat 11/26/24 00:08 Consult Neurology Routine 11/28/24 11:00 Consult Orthopedic Surgery Routine Diagnostic Imagining Performed 11/25/24 16:19 CT angio head wo/w Stat CT angio neck with con Stat 11/25/24 16:21 CT angio chest dissec wo/w con Stat 11/27/24 09:55 CT cervical spine wo con Urgent CT thoracic spine wo con Urgent 11/28/24 11:10 MRI Brain [MR brain wo/w con] Urgent 11/28/24 11:16 MRI Cervical [MR cervical spine wo con] Urgent Pending Results Patient Have Any Pending Studies at Discharge: Yes Discharge Instructions Given to Patient (Per Discharging Provider) Hilton Lynn were recently hospitalized for left scapula pain. You underwent a workup and were evaluated by the neurologist and the orthopedic surgeon. Please see recommendations below regarding your discharge. 1. Please take Baclofen 10mg three times daily. Your next dose at home will be this evening, 11/29. 2. Please take Aspirin 81mg and Plavix 75mg once daily. Your first dose at home will start tomorrow, 11/30. 3. Please take the prednisone taper as prescribed. Your next dose will be 11/30. 4. You were found to have low vitamin D and Vitamin B12 levels while inpatient - these supplements have been sent to your pharmacy. Please take these once daily and follow up with your new PCP to recheck labs. Your first dose at home will be 11/30. 5. Please use ibuprofen or tylenol for breakthrough pain. 6. We have arranged a follow up with a new PCP for you on 12/05/2024 at 9:30am. The office phone number is above. 7. Neurology has recommended a follow up if you prefer in 2-3 months. Please discuss this with your PCP at your upcoming office visit. 8. Orthopedics has referred you to [facility] in [place] for further care of your pain. Their office should be in contact with you regarding an appointment. If you develop any worsening pain, weakness, chest pain, or shortness of breath please report back to the ER for further care. Sincerely, Zandra Keita PA-C Total Time Total Time Spent Total Time Spent (In Minutes): 60 Total Time Includes: Examination of the Patient, Discharge Planning, Medication Reconciliation and Communication With Other Providers Coding Level of Care Code 30939 INP/OBS DISCH >30 MIN Diagnoses Cerebral vasculitis I67.7 Left shoulder pain M25.512
[2024-11-29 11:04] VITALS: PULSE 63
[2024-11-30 01:01] LABS: ANCA Screen Negative (Negative); Anti Nuclear Antibody Screen NEGATIVE (NEGATIVE)
[2024-12-02 08:47] LABS: Abnormal Protein Band 1 DNR mg/24 h (NONE DETECTED); Abnormal Protein Band 2 DNR mg/24 h (NONE DETECTED); Abnormal Protein Band 3 DNR mg/24 h (NONE DETECTED); Creatinine, 24 hr Urine 1.52 g/24 h (0.50-2.15); Protein, Urine 24 Hour 210 mg/24 h (<150); Ur Albumin % 24 %; Ur Alpha-1-globulin % 15 %; Ur Alpha-2-globulin % 21 %; Ur Beta Globulin % 16 %; Ur Gamma Globulin % 24 %; Ur Protein/Creatinine Rat mg/g 139 mg/g creat (<150); Urine Protein/Creatinine Ratio 0.139 (<0.150)
[2024-12-02 22:03] LABS: % Cryocrit DNR; Cryoglobulin, QL Negative (Negative)
== END 2024-11-29 13:08 | disposition home or self-care (01) | DRG 103 ==
LOC: ED 15:40 → 2N 22:47 → SUATTDRO 22:47 → 2N 23:39 → 3E 11-28 16:55